=== PATIENT | female | born 1955 | race Caucasian/White ===

== ENCOUNTER → 2019-01-04 11:12 | Outpatient (CLI) | payer MEDICARE, BC, SELFPAY ==
--- NOTE | 2019-01-04 | DI.MG.S_ITS ---
BILATERAL DIGITAL SCREENING MAMMOGRAM 3D/2D WITH CAD: 01/04/2019 CLINICAL: Routine screening. Comparison is made to exams dated: 12/18/2017 mammogram, 12/18/2016 mammogram, 11/26/2015 mammogram, 07/26/2012 mammogram, 11/09/2014 mammogram, and 08/01/2013 mammogram - [facility]. The tissue of both breasts is extremely dense, which lowers the sensitivity of mammography. Current study was also evaluated with a Computer Aided Detection (CAD) system. No significant masses, calcifications, or other findings are seen in either breast. There has been no significant interval change. IMPRESSION: NEGATIVE There is no mammographic evidence of malignancy. A 1 year screening mammogram is recommended. This exam was interpreted at Station ID: [id number]. NOTE: For mammograms, a report in lay terms will be sent to the patient. Approximately 15% of breast malignancies will not be visualized mammographically. In the management of a palpable breast mass, a negative mammogram must not discourage biopsy of a clinically suspicious lesion. Electronically Signed By: Jd bronson/yuly:01/04/2019 18:18:11 letter sent: Normal Exam ACR BI-RADS Category 1: Negative 3341F
== END ==
PROVIDERS: PCP Nurse Practitioner Family; Visit Provider Nurse Practitioner Family
DX: Z12.31 Encounter for screening mammogram for malignant neoplasm of breast (principal)
CPT/HCPCS: 77063; 77067

== ENCOUNTER → 2019-03-08 09:14 | Outpatient (CLI) | payer MEDICARE, BC, SELFPAY ==
--- NOTE | 2019-03-08 | DI.US.S_ITS ---
PROCEDURE: US ABDOMEN LIMITED INDICATIONS: LEFT LOWER HERNIA TECHNIQUE: Real-time focused scanning was performed of the inguinal region, with image documentation. COMPARISON: None. FINDINGS: Normal examination without evidence of hernia or adenopathy. IMPRESSION: Source of left lower quadrant concern is not identified. No hernia or adenopathy is found. Depending on the clinical status followup by CT scanning may become necessary. Dictated by: Jaiden Blackmon M.D. on 03/08/2019 at 10:41 Approved by: Jaiden Blackmon M.D. on 03/08/2019 at 10:41
== END ==
PROVIDERS: PCP Nurse Practitioner Family; Visit Provider Nurse Practitioner Family
DX: R10.32 Left lower quadrant pain (principal)
CPT/HCPCS: 76705

== ENCOUNTER → 2019-04-07 14:12 | Outpatient (CLI) | payer MEDICARE, BC, SELFPAY | PROVIDERS: PCP Nurse Practitioner Family; Visit Provider Nurse Practitioner Family | DX: M81.0 Age-related osteoporosis without current pathological fracture (principal); Z78.0 Asymptomatic menopausal state; Z90.722 Acquired absence of ovaries, bilateral | CPT/HCPCS: 77080 ==

== ENCOUNTER → 2019-05-05 16:18 | Outpatient (CLI) | payer MEDICARE, BC, SELFPAY ==
--- NOTE | 2019-05-05 | DI.RAD.S_ITS ---
PROCEDURE: XR ANKLE RT MIN 3V INDICATIONS: ROLLED RIGHT ANKLE YESTERDAY AND OSTEOPOROSIS TECHNIQUE: 3 views of the ankle were acquired. COMPARISON: None. FINDINGS: Bones: No fractures or dislocations. Ankle mortise is normally aligned. No suspicious bony lesions. Partially imaged surgical hardware involving the head of the first metatarsal. Soft tissues: No tibiotalar joint effusion. Achilles tendon appears normal. IMPRESSION: Right ankle without acute radiographic abnormalities. If there is persistent clinical concern for occult fracture given adequate mechanism of injury, consider repeat imaging in 10-14 days. Dictated by: Julien Francois M.D. on 05/05/2019 at 16:44 Approved by: Julien Francois M.D. on 05/05/2019 at 16:45
== END ==
PROVIDERS: PCP Nurse Practitioner Family; Visit Provider Nurse Practitioner Family
DX: M25.571 Pain in right ankle and joints of right foot (principal); M81.0 Age-related osteoporosis without current pathological fracture
CPT/HCPCS: 73610

== ENCOUNTER → 2020-01-18 15:37 | Outpatient (CLI) | payer MEDICARE, BC, SELFPAY ==
--- NOTE | 2020-01-18 | DI.MRI.S_ITS ---
PROCEDURE: MR LUMBAR SPINE WO CON INDICATIONS: RADICULOPATHY TECHNIQUE: Noncontrast sagittal T1 spin echo and T2 fast echo, sagittal STIR, axial T1 and T2 fast spin echo through the lumbar spine. In cases with scoliosis, additional coronal T2 fast spin echo may be performed. COMPARISON: [facility] [place], CR, XR THORACIC SPINE 2 VIEWS, 09/08/2017, 10:46. [facility], MR, L-SPINE WITHOUT CONTRAST, 09/05/2014, 12:14. FINDINGS: Image quality: The extensive metal artifact as was seen on prior MRI 09/05/14 letters the examination non-diagnostic.. Alignment and Curvature: There is a dextroscoliotic thoracic bony alignment with levoscoliotic lumbosacral alignment documented by prior plain film imaging. Bone Marrow: Marrow is of normal overall signal on very small portions of the lumbosacral spine that can be seen without overlie of extensive metal artifact. This is predominantly at the inferior margin of the sacrum. Spinal Cord: Conus medullaris cannot be seen due to metal artifact. Low thoracic cord cannot be seen. Paraspinous Soft Tissues: No paravertebral masses in the small portion of the paravertebral soft tissues that can be seen without overlie of extensive metal artifact. IMPRESSION: This study is essentially nondiagnostic for violation of the low thoracic spine and lumbosacral spine. Extensive metal artifact is present again, due to metallic spine fusion procedure with Varghese rods over the lumbosacral spine and much of the thoracic spine. Dictated by: Jaiden Blackmon M.D. on 01/18/2020 at 16:58 Approved by: Jaiden Blackmon M.D. on 01/18/2020 at 17:02
== END ==
PROVIDERS: PCP Internal Medicine; Referring Provider Internal Medicine; Visit Provider Internal Medicine
DX: M54.16 Radiculopathy, lumbar region (principal); Z98.1 Arthrodesis status
CPT/HCPCS: 72148

== ENCOUNTER 2020-02-20 19:56 | Emergency (ER) | payer MEDICARE, BC, SELFPAY ==
[2020-02-20 20:02] VITALS: BP 173/89; PULSE 81; RESP 20; TEMP 37.2; O2SAT 99
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
[2020-02-20 21:36] VITALS: PULSE 74
[2020-02-20 22:20] VITALS: BP 137/76; PULSE 76; RESP 16; TEMP 36.6; O2SAT 96
== END 2020-02-20 22:37 | disposition home or self-care (01) ==
PROVIDERS: Emergency Provider Emergency Medicine; PCP Internal Medicine
DX: S52.502A Unspecified fracture of the lower end of left radius, initial encounter for closed fracture (principal); V19.9XXA Pedal cyclist (driver) (passenger) injured in unspecified traffic accident, initial encounter
CPT/HCPCS: 73110; 99282; 99283

== ENCOUNTER → 2020-02-21 13:43 | Outpatient (CLI) | payer MEDICARE, BC, SELFPAY ==
--- NOTE | 2020-02-21 | DI.CT.S_ITS ---
PROCEDURE: CT UE LT WO CON INDICATIONS: Fracture of unspecified carpal bone, left wrist TECHNIQUE: Noncontrast 1 mm axial sections acquired through the carpal bones, with coronal and sagittal reformats. COMPARISON: None. FINDINGS: Image quality: Excellent. Bones: Intra-articular fracture of the distal radial metaphysis, with a 3 mm of articular surface diastasis and 1 mm of cortical step-off. Mildly impacted appearance. Cystic focus present within the lunate incidentally noted. IMPRESSION: Mildly impacted, intra-articular fracture of the distal radial metaphysis with mild articular surface incongruity as above Dictated by: Palomo Yoo M.D. on 02/21/2020 at 15:39 Approved by: Palomo Yoo M.D. on 02/21/2020 at 15:43
== END ==
PROVIDERS: PCP Internal Medicine; Referring Provider Internal Medicine; Visit Provider Orthopaedic Surgery
DX: S52.572A Other intraarticular fracture of lower end of left radius, initial encounter for closed fracture (principal); X58.XXXA Exposure to other specified factors, initial encounter
CPT/HCPCS: 73200

== ENCOUNTER → 2020-02-26 15:29 | Outpatient (CLI) | payer MEDICARE, BC, SELFPAY ==
[2020-02-26 17:41] LABS: Add Manual Diff / Slide Review NO; Basophils Absolute Auto 100 /uL (0-100); Basophils Percent Auto 1.1 % (0-2); Eosinophils Absolute Auto 100 /uL (0-450); Eosinophils Percent Auto 2.8 % (2-4); Hematocrit 39.4 % (36-46); Hemoglobin 13.6 g/dL (12.0-16.0); Lymphocytes Absolute Auto 1200 /uL (1100-4500); Lymphocytes Percent Auto 23.1 % (25-40); Mean Corpuscular HGB Conc 34.6 % (30-36); Mean Corpuscular Hemoglobin 31.6 PG (26-34); Mean Corpuscular Volume 91.4 fL (80-100); Monocytes Absolute Auto 500 /uL (0-900); Monocytes Percent Auto 9.2 % (3-14); Neutrophils Absolute Auto 3300 /uL (1500-7000); Neutrophils Percent Auto 63.8 % (50-75); Platelet Count 229 X10^3/uL (150-400); Red Blood Cell Count 4.31 X10^6/uL (4.0-5.2); Red Cell Distribution Width 13.3 % (11.6-14.8); White Blood Cell Count 5.2 X10^3/uL (4.5-11.0)
[2020-02-26 18:29] LABS: BUN Creatinine Ratio 18.5 (6-22); Blood Urea Nitrogen 10 mg/dL (7-17); Carbon Dioxide 32 mmol/L (22-32); Chloride 97 mmol/L (98-107); Estimated Glomerular Filt Rate > 60.0 mL/min (>60); Glucose 78 mg/dL (80-110); HEMOLYSIS < 15 (0-50); Potassium 4.2 mmol/L (3.4-5.1); Sodium 136 mmol/L (137-145)
== END ==
PROVIDERS: PCP Internal Medicine; Referring Provider Orthopaedic Surgery; Visit Provider Orthopaedic Surgery
DX: Z01.818 Encounter for other preprocedural examination (principal); Z01.812 Encounter for preprocedural laboratory examination
CPT/HCPCS: 36415; 80048; 85025; 93005

== ENCOUNTER → 2020-02-27 14:03 | Outpatient (CLI) | payer MEDICARE, BC, SELFPAY ==
[2020-02-28 19:47] LABS: COVID19 Sendout Not Detected (Not Detect)
== END ==
PROVIDERS: PCP Internal Medicine; Visit Provider Physician Assistant
DX: Z01.812 Encounter for preprocedural laboratory examination (principal)
CPT/HCPCS: 87635

== ENCOUNTER 2020-03-01 06:12 | Day surgery (SDC) | payer MEDICARE, BC, SELFPAY ==
[2020-02-27 14:45] VITALS: BMI 21.5
[2020-03-01] VITALS (7 sets, daily range): BP systolic 114–138; BP diastolic 48–97; PULSE 57–95; RESP 13–19; TEMP 36.1–36.6; O2SAT 94–96; BMI 21.5
[2020-03-01] MEDS: LACTATED RINGERS 1,000 ML 42 ML IV (07:05)
--- NOTE | 2020-03-01 07:43 | PM.PREOP ---
Pre-operative Note COVID-19 COVID-19 status: Negative Interval Note History & Physical reviewed/Exam performed by Physician: Yes Changes to H&P: No
--- NOTE | 2020-03-01 07:43 | PM.OP.1 ---
Operative Date/Time/Diagnoses Date of procedure: 03/01/20 Time of procedure: 07:54 Pre-op diagnosis: Comminuted left distal radius fracture Post-op diagnosis: same Procedure & Clinicians Procedure: ORIF left distal radius fracture Same procedure as scheduled: Yes Indications: This is a 64-year-old female fell on her outstretched left hand and had a comminuted left distal radius fracture she about the operating room for open reduction internal fixation with volar plate. Surgeon: Xenia Morel Click Yes if Unassisted: Yes Anesthesia Type: General Operative Notes Findings: Comminuted left distal radius fracture, good reduction, adequate bone Closure Type: primary Specimen(s): none sent Prosthetic devices, grafts, tissues, transplants, or devices: Biomet DVR volar plate Estimated Blood Loss (mL): 100 Blood products transfused: none Tourniquet time (min): 85 Procedure in detail: Patient is brought to the operating room the underwent induction of a general anesthesia. A time-out was performed. Antibiotics were given. Left upper extremity prepped draped standard sterile fashion. High arm tourniquet was applied to 250 mm of mercury. A volar incision was made with a slight curve distally to the wrist crease. Dissection was carried out through skin and subcutaneous tissues. An incision was made over the FCR sheath. The flexor carpi radialis was meticulously mobilized and the inferior aspect of the sheath was incised. Pronator muscle was stripped off of the distal radius. Fracture then was meticulously an anatomically aligned. DVR narrow left distal radius plate was selected. It was carefully aligned to the distal radius and it was some stabilized with a screw into the sliding slot. A pin was placed distally in the distal fragment x-ray was then brought in and it was felt that the plate should be shifted slightly distally. Five additional traction was applied to the fracture and the plate was slid about 1 mm to 2 mm distally. It was rechecked with the fluoroscopy and noted to be in a good position. The fracture was well aligned and the plate appeared to be well aligned. On the distal fixation was provided with multiple screws and a peg. The proximal screws were then filled using standard technique. Intraoperative x-rays confirmed anatomic reduction and good position of all of the screws. I range of motion of the wrist was carefully used to check that there was no crepitation or irritation with range of motion of the wrist. Marcaine was then injected the muscle was loosely approximated over the plate. The fascia was closed with interrupted with Vicryl. Skin was closed with interrupted nylon. Wound was dressed sterilely. The patient was placed in a short-arm splint. Patient tolerated the procedure well. She was transferred recovery room in satisfactory condition. Marcaine was injected. Complications: none Post-operative Condition: stable Disposition: same day surgery Plan for aftercare: Return to clinic in 10 days for x-rays out of plaster removal of sutures and placement of her removable splint.
[2020-03-01] MEDS: CEFAZOLIN 2 GM/100 ML FROZ.PIGGY IV (07:45)
--- NOTE | 2020-03-01 08:13 | SUR.OPER ---
Supine on padded OR bed, head on pillow,RIGHT arm secured on padded arm board at <90 degrees abduction, legs uncrossed, safety belt at thigh, tape over blanket over lower legs.LEFT ARM TO HAND TABLE.
[2020-03-01] MEDS: BUPIVACAINE 0.5% (PF) VIAL 30 ML INJ (08:22)
[2020-03-01] MEDS: OXYCODONE IR 5 MG TABLET PO (09:46)
== END 2020-03-01 10:24 | disposition home or self-care (01) ==
PROVIDERS: PCP Internal Medicine; Referring Provider Orthopaedic Surgery; Visit Provider Orthopaedic Surgery
PROC: (CPT 25609; principal; 2020-03-01 07:45)
DX: S52.572A Other intraarticular fracture of lower end of left radius, initial encounter for closed fracture (principal); Y93.55 Activity, bike riding; V19.9XXA Pedal cyclist (driver) (passenger) injured in unspecified traffic accident, initial encounter; I10 Essential (primary) hypertension; M81.0 Age-related osteoporosis without current pathological fracture; K21.9 Gastro-esophageal reflux disease without esophagitis; M41.9 Scoliosis, unspecified
CPT/HCPCS: 25609; J0690; J1100; J2405; J2704; J3010

== ENCOUNTER → 2020-03-07 14:10 | Outpatient (CLI) | payer MEDICARE, BC, SELFPAY | PROVIDERS: PCP Internal Medicine; Referring Provider Internal Medicine; Visit Provider Internal Medicine | DX: M79.671 Pain in right foot (principal) | CPT/HCPCS: 95886; 95910 ==

== ENCOUNTER → 2020-03-25 08:27 | Outpatient (CLI) | payer MEDICARE, BC, SELFPAY ==
[2020-03-25 09:08] VITALS: BP 139/80; PULSE 83; RESP 16; TEMP 36.9; O2SAT 97; BMI 21.0
[2020-03-25 09:46] LABS: Hematocrit 39.9 % (36-46); Hemoglobin 13.4 g/dL (12.0-16.0); Mean Corpuscular HGB Conc 33.7 % (30-36); Mean Corpuscular Volume 92.1 fL (80-100); Platelet Count 218 X10^3/uL (150-400); Red Blood Cell Count 4.33 X10^6/uL (4.0-5.2); Red Cell Distribution Width 13.4 % (11.6-14.8)
[2020-03-25 09:54] LABS: Prothrombin Time 11.4 SECONDS (10.1-12.7)
--- NOTE | 2020-03-25 10:20 | SUR.PREOP ---
1020 pt left, test cancelled, Dr Blackmon spoke at length with pt and she left unit with CD and in stable condition.
== END ==
PROVIDERS: PCP Internal Medicine; Referring Provider Internal Medicine; Visit Provider Internal Medicine
DX: Z79.899 Other long term (current) drug therapy (principal); Z53.9 Procedure and treatment not carried out, unspecified reason
CPT/HCPCS: 36415; 85027; 85610

== ENCOUNTER → 2020-03-29 14:58 | Outpatient (CLI) | payer MEDICARE, BC, SELFPAY ==
--- NOTE | 2020-03-29 15:00 | DI.MG.S_ITS ---
BILATERAL DIGITAL SCREENING MAMMOGRAM 3D/2D WITH CAD: 03/29/2020 CLINICAL: Routine screening. Comparison is made to exams dated: 01/04/2019 mammogram, 12/18/2017 mammogram, and 12/18/2016 mammogram - [facility]. There are scattered fibroglandular elements in both breasts. Current study was also evaluated with a Computer Aided Detection (CAD) system. No significant masses, calcifications, or other findings are seen in either breast. There has been no significant interval change. IMPRESSION: NEGATIVE There is no mammographic evidence of malignancy. A 1 year screening mammogram is recommended. This exam was interpreted at Station ID: [id number]. NOTE: For mammograms, a report in lay terms will be sent to the patient. Approximately 15% of breast malignancies will not be visualized mammographically. In the management of a palpable breast mass, a negative mammogram must not discourage biopsy of a clinically suspicious lesion. Electronically Signed By: Sampson kiran/yuly:03/29/2020 16:31:28 letter sent: Normal Exam ACR BI-RADS Category 1: Negative 3341F
== END ==
PROVIDERS: PCP Internal Medicine; Referring Provider Internal Medicine; Visit Provider Internal Medicine
DX: Z12.31 Encounter for screening mammogram for malignant neoplasm of breast (principal)
CPT/HCPCS: 77063; 77067

== ENCOUNTER → 2021-05-02 10:19 | Outpatient (CLI) | payer MEDICARE, BC, SELFPAY ==
--- NOTE | 2021-05-02 | DI.MG.S_ITS ---
BILATERAL DIGITAL SCREENING MAMMOGRAM 3D/2D WITH CAD: 05/02/2021 CLINICAL: Routine screening. Comparison is made to exams dated: 03/29/2020 mammogram, 01/04/2019 mammogram, and 12/18/2017 mammogram - [facility]. The tissue of both breasts is heterogeneously dense. This may lower the sensitivity of mammography. Current study was also evaluated with a Computer Aided Detection (CAD) system. No significant masses, calcifications, or other findings are seen in either breast. There has been no significant interval change. IMPRESSION: NEGATIVE There is no mammographic evidence of malignancy. A 1 year screening mammogram is recommended. This exam was interpreted at Station ID: [id number]. NOTE: For mammograms, a report in lay terms will be sent to the patient. Approximately 15% of breast malignancies will not be visualized mammographically. In the management of a palpable breast mass, a negative mammogram must not discourage biopsy of a clinically suspicious lesion. Electronically Signed By: Addie tejada/yuly:05/02/2021 14:06:17 letter sent: Normal Exam ACR BI-RADS Category 1: Negative 3341F
== END ==
PROVIDERS: PCP Internal Medicine; Referring Provider Internal Medicine; Visit Provider Internal Medicine
DX: Z12.31 Encounter for screening mammogram for malignant neoplasm of breast (principal)
CPT/HCPCS: 77063; 77067

== ENCOUNTER → 2021-06-06 12:38 | Outpatient (CLI) | payer MEDICARE, BC, SELFPAY ==
--- NOTE | 2021-06-06 | DI.RAD.S_ITS ---
PROCEDURE: XR DEXA AXIAL SKELETON INDICATIONS: Asymptomatic menopausal state COMPARISON: [facility], CR, XR DEXA AXIAL SKELETON, 04/07/2019, 14:52. FINDINGS: This blank DEXA report has been sent in error by the PACS system. The correct and complete report will be forthcoming in 1-2 days. Thank you for your patience and understanding. Dictated by: Meghan Wynne MD, PhD on 06/07/2021 at 8:08 Approved by: Meghan Wynne MD, PhD on 06/07/2021 at 8:09
== END ==
PROVIDERS: PCP Internal Medicine; Referring Provider Internal Medicine; Visit Provider Internal Medicine
DX: M81.0 Age-related osteoporosis without current pathological fracture (principal); Z78.0 Asymptomatic menopausal state; Z90.722 Acquired absence of ovaries, bilateral
CPT/HCPCS: 77080

== ENCOUNTER → 2021-10-05 13:51 | Outpatient (CLI) | payer MEDICARE, BC, SELFPAY ==
--- NOTE | 2021-10-05 13:53 | DI.RAD.S_ITS ---
PROCEDURE: XR HAND RT MIN 3V INDICATIONS: R thenar pain, swelling TECHNIQUE: 3 views of the hand(s) acquired. COMPARISON: [facility] [place], CR, XR WRIST 3+ VIEWS BILATERAL, 06/05/2020, 11:13. FINDINGS: Bones: There is a 6 mm acute fracture seen involving the proximal aspect of the proximal phalanx of the thumb, with moderate displacement of the fracture fragment. There is intra-articular involvement. No additional fractures are detected. Age-appropriate bony degenerative changes are seen. Soft tissues: No suspicious soft tissue calcifications. IMPRESSION: Moderately displaced 6 mm acute avulsion fracture fragment seen at proximal aspect of the proximal phalanx of the thumb. Dictated by: Miky Allen M.D. on 10/05/2021 at 13:01 Approved by: Miky Allen M.D. on 10/05/2021 at 13:03
== END ==
PROVIDERS: PCP Internal Medicine; Referring Provider Physician Assistant; Visit Provider Physician Assistant
DX: S62.511A Displaced fracture of proximal phalanx of right thumb, initial encounter for closed fracture (principal); X58.XXXA Exposure to other specified factors, initial encounter
CPT/HCPCS: 73130

== ENCOUNTER 2021-10-11 00:25 | Emergency (ER) | payer MEDICARE, BC, SELFPAY ==
[2021-10-11 00:37] VITALS: BP 145/113; PULSE 100; RESP 18; TEMP 36.6; O2SAT 99; BMI 21.9
--- NOTE | 2021-10-11 00:38 | DI.RAD.S_ITS ---
PROCEDURE: XR FOOT RT MIN 3V INDICATIONS: Trauma right great toe/metatarsal TECHNIQUE: 3 views of the foot were acquired. COMPARISON: [facility] [place], CR, XR FOOT 3 VIEWS WEIGHT BEARING LEFT, 06/15/2019, 14:36. FINDINGS: Bones: A linear lucency traversing the head of the 1st metatarsal is consistent with a fracture. Postoperative changes are seen without perihardware lucency. Hallux valgus angulation of the great toe measures 32?. Soft tissues: No tibiotalar joint effusion. Achilles tendon appears normal. IMPRESSION: 1. Linear lucency of the head of the 1st metatarsal consistent with a fracture. Please correlate with point tenderness. 2. Postoperative changes and hallux valgus angulation of the great toe. Dictated by: Emerson Barber M.D. on 10/11/2021 at 0:53 Approved by: Emerson Barber M.D. on 10/11/2021 at 0:58
--- NOTE | 2021-10-11 00:38 | ED_ITS ---
HPI - General Adult General Chief complaint: Extremity Injury, Upper Stated complaint: cut finger/left hand Time Seen by Provider: 10/11/21 00:32 Source: patient Mode of arrival: Ambulatory Limitations: no limitations History of Present Illness HPI narrative: 66-year-old female who is here for evaluation of a cut to her left index finger. It occurred while she was making dinner this evening. She covered with a bandage. She continued making dinner and also had dinner but it was when she was getting ready for bed this evening that she decided to take the bandage off and noticed that it was still bleeding. She also had another injury today. She dropped a heavy can on the top of her right foot. Since that time has had increasing redness and bruising and discomfort. Related Data Home Medications Medication Instructions Recorded Confirmed amitriptyline 25 mg tablet 25 mg PO BEDTIME 03/01/20 10/05/21 atorvastatin 10 mg tablet 10 mg PO BEDTIME 03/01/20 10/05/21 gabapentin 300 mg capsule 300 mg PO BEDTIME 03/01/20 10/05/21 hydrochlorothiazide 12.5 mg capsule 12.5 mg PO DAILY 03/01/20 10/05/21 Allergies Allergy/AdvReac Type Severity Reaction Status Date / Time crab [CRAB] Allergy Mild LIP Verified 10/05/21 13:32 SWELLING MESQUITE Allergy Severe SEVERE Uncoded 10/05/21 13:32 FACIAL SWELLING, HIVES Review of Systems Musculoskeletal Musculoskeletal: Reports system reviewed and no additional complaints, except as documented and Reports as per HPI Integumentary/Breasts Skin/Breast: Reports system reviewed and no additional complaints, except as documented and Reports as per HPI Neurologic Neurologic: Reports system reviewed and no additional complaints, except as documented Hematologic/Lymphatic On Anticoagulants: No Patient History Medical History Atypical chest pain GERD (gastroesophageal reflux disease) Glaucoma, right eye HTN (hypertension) Osteoporosis Scoliosis Thoracic back pain Wrist fracture, left (02/20/20) Surgical History History of arthroplasty of left knee (08/2015) History of arthroplasty of right knee (03/17/17) History of bunionectomy of both great toes History of Marshal fundoplication Hx of arthroscopy of left knee Hx of bilateral oophorectomy Hx of cholecystectomy Hx of eye surgery Hx of sinus surgery Hx of spinal fusion Hx of tonsillectomy S/P total knee replacement Social History household members: spouse lives independently: Yes Smoking Status: Never smoker alcohol intake: current Smoking Status: Never smoker alcohol intake frequency: a few times a week Substance Use Type: does not use Exam Initial Vital Signs Initial Vital Signs: Vital Signs Temperature 97.9 F 10/11/21 00:37 Pulse Rate 100 H 10/11/21 00:37 Respiratory Rate 18 10/11/21 00:37 Blood Pressure 145/113 H 10/11/21 00:37 Pulse Oximetry 99 10/11/21 00:37 Const General: cooperative and healthy appearing HENMT Head: normal to inspection and normocephalic Skin Other: Patient has a 1/2 cm cut to the ulnar aspect of the right index finger at the level of the nail. Does not involve the nail. There is no active bleeding. Patient also has bruising to the MTP joint of the right great toe. Extrem Other: Tenderness to palpation over the MTP joint of the right great toe. Procedures Laceration Repair Laceration 1: Site: hand Side (If applicable): left Size (cm): 0.5 Description: linear Depth: simple, single layer Skin layer closed with: dermabond Course Orders Ordered: ED Orders 10/11/21 00:38 XR foot RT min 3V Stat Vital Signs Vital signs: Vital Signs - 8 hr 10/11/21 00:37 10/11/21 01:25 Temperature 97.9 F Pulse Rate 100 H 71 Respiratory Rate 18 16 Blood Pressure 145/113 H 117/65 Pulse Oximetry 99 97 Medical Decision Making Imaging Data Extremity x-ray #1: Radiologist's Impression: [address] [address] XRay Report Signed Patient: Jen Erickson MR#: [id number] : 1955 Acct:[id number] Age/Sex: 66 / F Date of Service: 10/11/21 Loc: ED Accession Number: [id number] ?? Procedure: XR foot RT min 3V Ordering Provider: Fili Chu D.O. PROCEDURE:? XR FOOT RT MIN 3V ? INDICATIONS:? Trauma right great toe/metatarsal ? TECHNIQUE:? 3 views of the foot were acquired.? ? COMPARISON:? [facility], [place], XR FOOT 3 VIEWS WEIGHT BEARING LEFT, 06/15/2019, 14:36. ? FINDINGS:? ? Bones:? A linear lucency traversing the head of the 1st metatarsal is consistent with a fracture.? Postoperative changes are seen without perihardware lucency.? Hallux valgus angulation of the great toe measures 32?. ? Soft tissues:? No tibiotalar joint effusion.? Achilles tendon appears normal.? ? ? IMPRESSION:? 1. Linear lucency of the head of the 1st metatarsal consistent with a fracture.? Please correlate with point tenderness. 2. Postoperative changes and hallux valgus angulation of the great toe.? ? Dictated by: Emerson Barber M.D. on 10/11/2021 at 0:53 ? ? Approved by: Emerson Barber M.D. on 10/11/2021 at 0:58? MDM Narrative Medical decision making narrative: The cut to the left index finger is superficial and was closed with Dermabond without incident. X-rays of the right foot do show concern for a fracture as described above. She was placed in an orthopedic shoe. She was given care instructions return precautions for both of these injuries. She expressed understanding and agreement. Discharge Plan Departure Patient Disposition: Home Clinical Impression: Finger laceration, Fracture of toe of right foot Instructions: DI for Toe Fracture, DI for Laceration Repair-Skin Glue Activity Restrictions/Additional Instructions: The laceration should heal well with the skin glue. You can wash your hands like normal. The skin glue should come off within the next week. The x-ray does show that you have fractured the big toe on your right foot. Use the orthopedic shoe would like we discussed. You can contact the appellate court clerk at the number provided below for follow-up. Return to the emergency department for any new or worsening symptoms. Prescriptions: No Action atorvastatin 10 mg Tablet 10 mg PO BEDTIME 0RF amitriptyline 25 mg Tablet 25 mg PO BEDTIME 0RF hydrochlorothiazide 12.5 mg Capsule 12.5 mg PO DAILY 0RF gabapentin 300 mg Capsule 300 mg PO BEDTIME 0RF Referrals: Keisha Hobson DPM [Physician] - Natalie Beck ARNP [Primary Care Provider] -
[2021-10-11 01:25] VITALS: BP 117/65; PULSE 71; RESP 16; O2SAT 97
== END 2021-10-11 01:26 | disposition home or self-care (01) ==
PROVIDERS: Emergency Provider Emergency Medicine; PCP Internal Medicine
DX: S92.311A Displaced fracture of first metatarsal bone, right foot, initial encounter for closed fracture (principal); S61.210A Laceration without foreign body of right index finger without damage to nail, initial encounter; W45.8XXA Other foreign body or object entering through skin, initial encounter; W20.8XXA Other cause of strike by thrown, projected or falling object, initial encounter
CPT/HCPCS: 73630; 99283

== ENCOUNTER → 2021-10-13 09:17 | Outpatient (CLI) | payer MEDICARE, BC, SELFPAY ==
--- NOTE | 2021-10-13 | DI.MRI.S_ITS ---
PROCEDURE: MR HAND RT WO CON INDICATIONS: RIGHT SKIER'S THUMB TECHNIQUE: Noncontrast oblique coronal T1 spin echo and T2 fast spin echo with fat saturation, axial and sagittal T2 fast spin echo with fat saturation, through the thumb. COMPARISON: None. FINDINGS: Image quality: Some images are mildly degraded by motion artifact. Bones: A defect is identified in the ulnar aspect of the 1st proximal phalanx base, compatible with avulsion injury. First carpometacarpal joint: On sagittal images, the dorsal radial ligament and posterior oblique ligament appear intact. The intermetacarpal ligament between the 1st and 2nd metacarpal bases also appears intact. On the volar aspect, the deep and superficial layers of the anterior oblique ligament appear intact. First metacarpophalangeal joint: The radial collateral ligament appears intact, along with overlying fibers of the abductor pollicis brevis tendon. Tear and retraction of the ulnar collateral ligament. The overlying fibers of the adductor pollicis muscle appear intact. Linear T2 hyperintense signal underlies the extensor pollicis brevis tendon, concerning for partial tear. Reticulated and confluent T2 hyperintense signal is seen about the 1st MCP, compatible with edema. The aponeurosis of the adductor pollicis muscle also appears normal. The volar plate appears intact on sagittal images, situated between the radial and ulnar sesamoids. Miscellaneous: No ganglion cysts. IMPRESSION: 1. Tear and retraction of the ulnar collateral ligament. 2. Partial tear of the extensor pollicis brevis tendon. Dictated by: Gutierrez Mcguire M.D. on 10/13/2021 at 12:59 Approved by: Gutierrez Mcguire M.D. on 10/13/2021 at 13:42
== END ==
PROVIDERS: PCP Internal Medicine; Referring Provider Physician Assistant Medical; Visit Provider Physician Assistant Medical
DX: S63.641A Sprain of metacarpophalangeal joint of right thumb, initial encounter (principal); S66.211A Strain of extensor muscle, fascia and tendon of right thumb at wrist and hand level, initial encounter; S53.31XA Traumatic rupture of right ulnar collateral ligament, initial encounter; X58.XXXA Exposure to other specified factors, initial encounter
CPT/HCPCS: 73218

== ENCOUNTER → 2022-05-15 16:10 | Outpatient (CLI) | payer MEDICARE, BC, SELFPAY ==
--- NOTE | 2022-05-15 16:11 | DI.MG.S_ITS ---
BILATERAL DIGITAL SCREENING MAMMOGRAM 3D/2D WITH CAD: 05/15/2022 CLINICAL: Routine screening. Comparison is made to exams dated: 05/02/2021 mammogram, 03/29/2020 mammogram, and 01/04/2019 mammogram - [facility]. Both breasts are heterogeneously dense, which may obscure small masses (category c / 51-75% glandular tissue). Current study was also evaluated with a Computer Aided Detection (CAD) system. No significant masses, calcifications, or other findings are seen in either breast. There has been no significant interval change. IMPRESSION: NEGATIVE There is no mammographic evidence of malignancy. A 1 year screening mammogram is recommended. Based on the Tyrer Cuzick model (a risk assessment model) the patient's lifetime risk is 6.5% and her 10 year risk is 3.8%. According to the ACR, ACS, and NCCN guidelines, an annual breast MRI exam along with mammogram is recommended if the patient's lifetime risk is 20% or greater. This exam was interpreted at Station ID: [id number]. NOTE: For mammograms, a report in lay terms will be sent to the patient. Approximately 15% of breast malignancies will not be visualized mammographically. In the management of a palpable breast mass, a negative mammogram must not discourage biopsy of a clinically suspicious lesion. Electronically Signed By: Emanuel mamrolejo/yuly:05/15/2022 16:43:44 letter sent: Normal Exam ACR BI-RADS Category 1: Negative 3341F
== END ==
PROVIDERS: PCP Internal Medicine; Referring Provider Internal Medicine; Visit Provider Internal Medicine
DX: Z12.31 Encounter for screening mammogram for malignant neoplasm of breast (principal)
CPT/HCPCS: 77063; 77067

== ENCOUNTER → 2022-07-01 14:48 | Outpatient (CLI) | payer MEDICARE, BC, SELFPAY | PROVIDERS: PCP Internal Medicine; Referring Provider Internal Medicine; Visit Provider Internal Medicine | DX: M81.0 Age-related osteoporosis without current pathological fracture (principal); Z78.0 Asymptomatic menopausal state; Z79.83 Long term (current) use of bisphosphonates | CPT/HCPCS: 77080; 77081 ==

== ENCOUNTER 2023-04-14 14:40 | Outpatient (RCR) | payer MEDICARE, BC, SELFPAY ==
--- NOTE | 2023-04-14 15:34 | OT.OP.DC ---
Visit Care Team Role Provider Type CELIA Jarrell Attending Provider Advanced Dispatch Manager Family Provider Primary Care Provider Referring Provider Address: [address] [place] [address], [facility] [place], [address] Email: [email or web address] Outpatient OT Outpatient Adult Evaluation Start: 04/14/23 15:24 Freq: Status: Active Protocol: Document 04/14/23 15:24 AMS (Rec: 04/14/23 15:34 AMS [id number]) General Information - Adult Session Time Visit Start Time 15:00 Visit Stop Time 15:20 Total Visit Minutes 20 Setting Treatment Setting Outpatient Care Visit Type Note Type Initial Evaluation Assessment/Plan Assessment Treatment Assessment Jen is a 67 y.o. R hand dominant female referred to outpatient OT secondary to B OA. Medical History is significant for arthritis, joint replacement, neuropathy, osteopenia, vision problems, sciatica, and surgeries: spine fusion (d/t scoliosis); B total knee replacements; L distal radial fracture; R skier's thumb. Jen denied current use of finger/hand splints. Flexion contracture noted of R PIPJ and slight ulnar drift at L 3rd DIPJ; report of discomfort at R 5th PIPJ, L 5th PIPJ, and L 3rd DIPJ. Concern re: deformities of joints. Verbally discussed basic joint protection principles. Rec referral to UE orthopedic hand specialist versus certified hand therapist to discuss options ( including custom-made splints) . Plan Patient Recommendations Discharge from Occupational Therapy Suggested Referrals Other Other Suggested Referrals UE ortho specialist/Certified Hand Therapist Functional Wrist/Hand Scan Hand Side Sensory Assessment Sensory Profile2
== END 2023-04-16 10:33 | disposition home or self-care (01) ==
LOC: OT 14:40
PROVIDERS: Family Provider Internal Medicine; PCP Internal Medicine; Referring Provider Internal Medicine; Visit Provider Internal Medicine
DX: M19.041 Primary osteoarthritis, right hand (principal); M19.042 Primary osteoarthritis, left hand; M25.50 Pain in unspecified joint
CPT/HCPCS: 97165

== ENCOUNTER → 2023-06-07 14:22 | Outpatient (CLI) | payer MEDICARE, BC, SELFPAY ==
--- NOTE | 2023-06-07 14:23 | DI.RAD.S_ITS ---
PROCEDURE: XR LUMBAR SPINE MIN 4V INDICATIONS: BACK PAIN TECHNIQUE: 5 views of the lumbar spine were acquired, including bilateral oblique views. COMPARISON: [facility], CR, XR LUMBAR SPINE WITH OLBIQUES PLUS FLEXION EXTENSION, 11/25/2020, 11:09. FINDINGS: Bones: Lumbosacral spine fixation. Varghese rods extending to the thoracic spine. No hardware fracture is seen. Bones appear osteopenic. Scoliosis. Soft tissues: Prominent gas in the stomach. Prominent fecal residue. Clips in the left abdomen. Suspect calcified fibroid. IMPRESSION: No interval change appreciated. Lumbosacral spine and Varghese azar fixation is intact. Dictated by: Guillaume Hermosillo M.D. on 06/07/2023 at 15:15 Approved by: Guillaume Hermosillo M.D. on 06/07/2023 at 15:20
== END ==
PROVIDERS: Family Provider Internal Medicine; PCP Internal Medicine; Referring Provider Physical Medicine & Rehabilitation; Visit Provider Physical Medicine & Rehabilitation
DX: M54.9 Dorsalgia, unspecified (principal); Z98.890 Other specified postprocedural states
CPT/HCPCS: 72110

== ENCOUNTER → 2023-06-08 14:19 | Outpatient (CLI) | payer MEDICARE, BC, SELFPAY ==
--- NOTE | 2023-06-08 | DI.MG.S_ITS ---
BILATERAL DIGITAL SCREENING MAMMOGRAM 3D/2D WITH CAD: 06/08/2023 CLINICAL: Routine screening. Comparison is made to exams dated: 05/15/2022 mammogram, 05/02/2021 mammogram, 03/29/2020 mammogram, and 01/04/2019 mammogram - [facility]. There are scattered areas of fibroglandular density in both breasts (category b / 25%-50% glandular tissue). Current study was also evaluated with a Computer Aided Detection (CAD) system. There are benign post operative findings in both breasts. No significant masses, calcifications, or other findings are seen in either breast. There has been no significant interval change. IMPRESSION: BENIGN There is no mammographic evidence of malignancy. A 1 year screening mammogram is recommended. Based on the Tyrer Cuzick model (a risk assessment model) the patient's lifetime risk is 4.1% and her 10 year risk is 2.6%. According to the ACR, ACS, and NCCN guidelines, an annual breast MRI exam along with mammogram is recommended if the patient's lifetime risk is 20% or greater. This exam was interpreted at Station ID: [id number]. NOTE: For mammograms, a report in lay terms will be sent to the patient. Approximately 15% of breast malignancies will not be visualized mammographically. In the management of a palpable breast mass, a negative mammogram must not discourage biopsy of a clinically suspicious lesion. Electronically Signed By: Guillaume davis/yuly:06/08/2023 15:38:30 letter sent: Normal Exam ACR BI-RADS Category 2: Benign Finding(s) 3342F
== END ==
PROVIDERS: Family Provider Internal Medicine; PCP Internal Medicine; Referring Provider Internal Medicine; Visit Provider Internal Medicine
DX: Z12.31 Encounter for screening mammogram for malignant neoplasm of breast (principal)
CPT/HCPCS: 77063; 77067

== ENCOUNTER 2023-06-22 10:13 | Outpatient (CLI) | payer MEDICARE, BC, SELFPAY ==
[2023-06-22] VITALS (8 sets, daily range): BP systolic 111–139; BP diastolic 56–74; PULSE 62–78; RESP 18–22; TEMP 36.3; O2SAT 96–100
--- NOTE | 2023-06-22 10:15 | DI.RAD.S_ITS ---
PROCEDURE: PAIN L INTERLAMINAR/CAUDAL INJ INDICATIONS: COCCXYGEAL DISORDER COMPARISON: None. FINDINGS: Fluoroscopic spot filming was performed to verify placement of spinal needles at the caudal foramen level(s), as labeled on the films. Appropriate location(s) of the needle tip(s) was confirmed by injection of iodinated contrast. IMPRESSION: Access needle placed for caudal epidural steroid injection. Dictated by: Meghan Wynne MD, PhD on 06/22/2023 at 13:25 Approved by: Meghan Wynne MD, PhD on 06/22/2023 at 13:25
[2023-06-22] MEDS: MIDAZOLAM 2 MG/2 ML VIAL IV (11:41)
[2023-06-22] MEDS: DEXAMETHASONE 10 MG/ML VIAL INJ (11:46)
[2023-06-22] MEDS: iopamidoL 15 ML VIAL 3 ML INJ (11:46)
[2023-06-22] MEDS: BUPIVACAINE 0.25% (PF) VIAL 2 ML INJ (11:47)
[2023-06-22] MEDS: BETAMETHASONE 30 MG/5 ML MDV 6 MG INJ (11:47)
--- NOTE | 2023-06-22 12:02 | PM.PROC.IR.1 ---
Date/Time/Diagnoses Date of procedure: 06/22/23 Time of procedure: 12:02 Pre-procedure diagnosis: 1. MULTILEVEL SPINAL STENOSIS 2. POST FUSION SYNDROME Post-procedure diagnosis: same Procedure Notes Procedure: 1. FLUOROSCOPICALLY GUIDED CONTRAST CONTROLLED CAUDAL EPIDURAL STEROID INJECTION, Indications: Jen is referred by CELIA Beck for treatment of Multilevel Stenosis Physician: Sundeep Damico Total Fluoroscopy time (seconds): 17 Total sedation minutes: 17 Complications: none Procedure in detail & Post-procedure care: FINDINGS Multilevel Stenosis S/p Lami/Fusion Syndrome DESCRIPTION OF PROCEDURE Fluoroscopically guided, contrast controlled caudal epidural steroid injection with Conscious Sedation Following review of allergy and review of potential side effects and complications, including but not necessarily limited to infection, allergic reaction, local tissue breakdown, temporary or permanent nerve injury, stroke, paralysis, and possible , the patient indicated that they understood and agreed to proceed. An informed consent document was signed by the patient, witnessed by a nurse, and placed in the patient's chart. Additionally, other treatment options including medications, modalities, and physical therapy were reviewed with the patient. After review of previous anaesthesic history and IV conscious sedation the patient was deemed safe to proceed with today?s procedure with IV conscious sedation as ASA class II designation. Safety time-out was performed to confirm patient ID, procedure to be performed and site of procedure. IV sedation was accomplished with a combination of 2mg of Versed administered by the RN after DO order, titrated to patient comfort during the course of the procedure while the patient remained responsive to all verbal commands In the prone position, following sterile prep and drape of the lumbar region, the sacral hiatus was identified fluoroscopically. The skin was anesthetized via a 25-gauge, 1.5-inch needle with approximately 2cc of 1% lidocaine solution. At this point, a 25-gauge, 3inch needle was atraumatically introduced and advanced under fluoroscopic guidance to the corresponding sacral hiatus and entering the sacral canal. Following negative aspiration, injection of approximately 0.3cc of Isovue 300 confirmed interarticular placement without vascular uptake. Radiological data, including multiple fluoroscopic views of the lumbosacral spine, reveal a spinal needle in the sacral canal through the sacral hiatus. Subsequent views show flow of contrast material superiorly and inferiorly in the sacral canal without vascular or intrathecal uptake. At this point, a total of 5cc including 2cc or 12mg of betamethasone and 3cc of 1% lidocaine solution was injected without complication. The patient tolerated the procedure well without signs or symptoms of complications prior to transfer to the recovery area continued monitoring without incident. The patient was then transferred to the recovery area where they were observed for an appropriate period of time after the injection. The patient reported a VAS score of 7 prior to the procedure and a post-procedure VAS of 2. POST OP INSTRUCTIONS The patient was provided a Pain Log to continue to record their response to the target-specific procedure prior to their follow-up visit with the referring physician. Additionally, specific post-injection care instructions and a contact number to our office were provided if concerns arise regarding possible complications associated with the procedure are suspected.
== END 2023-06-22 12:18 | disposition home or self-care (01) ==
PROVIDERS: Family Provider Internal Medicine; PCP Internal Medicine; Referring Provider Physical Medicine & Rehabilitation; Visit Provider Physical Medicine & Rehabilitation
DX: M48.061 Spinal stenosis, lumbar region without neurogenic claudication (principal); M96.1 Postlaminectomy syndrome, not elsewhere classified
CPT/HCPCS: 62323; 99152; J0702; J1100; J2250; J3490

== ENCOUNTER → 2023-08-01 10:38 | Outpatient (CLI) | payer MEDICARE, BC, SELFPAY | PROVIDERS: Family Provider Internal Medicine; PCP Internal Medicine; Visit Provider Physician Assistant | DX: R10.9 Unspecified abdominal pain (principal) | CPT/HCPCS: 87077; 87086; 87186 ==

== ENCOUNTER → 2023-08-28 11:07 | Outpatient (CLI) | payer MEDICARE, BC, SELFPAY ==
[2023-08-28 11:28] LABS: Bilirubin Urine UA NEGATIVE (NEGATIVE); Glucose Urine UA TRACE g/dL (Negative); Ketones Urine UA NEGATIVE (NEGATIVE); Leukocyte Esterase Urine UA 3+ (NEGATIVE); Nitrite Urine UA POSITIVE (Negative); Occult Blood Urine UA 3+ (Negative); Protein Urine UA 2+ (Negative)
[2023-08-28 11:43] LABS: Appearance Urine UA CLOUDY; Color Urine UA ORANGE; RBC Urine 10-30/HPF (0-5/HPF)
[2023-08-28 11:44] LABS: Bacteria Urine Many (>30); Culture Indicated Urine Specimen Cultured; Squamous Epithelial Cell Urine None Seen (0-5/HPF); WBC Urine >100/HPF (0-5/HPF)
== END ==
PROVIDERS: Family Provider Internal Medicine; PCP Internal Medicine; Visit Provider Student in an Organized Health Care Education/Training Program
DX: R30.0 Dysuria (principal)
CPT/HCPCS: 81001; 87077; 87086; 87186

== ENCOUNTER 2023-09-28 08:13 | Outpatient (CLI) | payer MEDICARE, BC, SELFPAY ==
[2023-09-28] VITALS (8 sets, daily range): BP systolic 123–162; BP diastolic 61–78; PULSE 61–68; RESP 12–24; TEMP 36.2; O2SAT 97–100
--- NOTE | 2023-09-28 08:45 | DI.RAD.S_ITS ---
PROCEDURE: PAIN L/S TRANSFORAMINAL INJECT INDICATIONS: SACRAL RADICULOPATHY COMPARISON: None. FINDINGS: Fluoroscopic spot filming was performed to verify placement of spinal needles at the right S1 level(s), as labeled on the films. Appropriate location(s) of the needle tip(s) was confirmed by injection of iodinated contrast. IMPRESSION: Intra procedural examination demonstrating appropriate positions of the needles. Dictated by: Julián Lopes M.D. on 09/28/2023 at 10:55 Approved by: Julián Lopes M.D. on 09/28/2023 at 10:58
[2023-09-28] MEDS: BUPIVACAINE 0.25% (PF) VIAL 2 ML INJ (09:03)
[2023-09-28] MEDS: DEXAMETHASONE 10 MG/ML VIAL INJ (09:03)
[2023-09-28] MEDS: BETAMETHASONE 30 MG/5 ML MDV 6 MG INJ (09:03)
[2023-09-28] MEDS: iopamidoL 15 ML VIAL 3 ML INJ (09:03)
[2023-09-28] MEDS: MIDAZOLAM 2 MG/2 ML VIAL IV (09:04)
--- NOTE | 2023-09-28 09:19 | P.PCN_ITS ---
Date/Time/Diagnoses Date of procedure: 09/28/23 Time of procedure: 09:19 Pre-procedure diagnosis: 1. FORAMINAL STENOSIS WITH LE SYMPTOMS Post-procedure diagnosis: same Procedure Notes Procedure: 1. FLUOROSCOPICALLY GUIDED CONTRAST CONTROLLED TRANSFORAMINAL EPIDURAL STEROID INJECTION - Right S1 Indications: Jen is referred by CELIA Melendez for treatment of Foraminal Stenosis with right LE Symptoms Physician: Sundeep Damico Total Fluoroscopy time (seconds): 24 Total sedation minutes: 20 Complications: none Procedure in detail & Post-procedure care: FINDINGS Foraminal Nerve Root Compression secondary to disc disease and facet hypertrophy DESCRIPTION OF PROCEDURE Following review of allergy and review of potential side effects and complications, including, but not necessarily limited to, infection, allergic reaction, local tissue breakdown, stroke, temporary or permanent nerve injury, paralysis, and possible , the patient indicated that the patient understood and agreed to proceed. An informed consent document was signed by the patient, witnessed by a nurse, and placed in the patient's chart. Additionally, other treatment options including medications, modalities, and physical therapy were reviewed with the patient. After review of previous anaesthesic history and IV conscious sedation the patient was deemed safe to proceed with today?s procedure with IV conscious sedation as ASA class II designation. Safety time-out was performed to confirm patient ID, procedure to be performed and site of procedure. IV sedation was accomplished with a combination of 2mg of Versed was administered by the RN after DO order, titrated to patient comfort during the course of the procedure while the patient remained responsive to all verbal commands. In the prone position following sterile prep and drape of the lumbar region, the right S1 posterior neuroforamen was identified fluoroscopically. The skin was anesthetized via a 25-gauge 1.5-inch needle with 1% lidocaine solution. At this point, a 25-gauge 3.5-inch spinal needle was atraumatically introduced and advanced under fluoroscopic guidance through the posterior right L5/S1 neuroforamen to approximately the anterior aspect of the canal. Depth was confirmed on lateral view. Following negative aspiration, injection of approximately 1.5 cc of Isovue 200 under live fluoroscopy in the AP view confi rmed excellent flow along the nerve root, into the epidural space without vascular or intrathecal uptake observed Radiological data, including multiple fluoroscopic views of the lumbosacral spine, reveal a spinal needle at the right S1 posterior neuroforamen. Subsequent views show flow of contrast material flowing superiorly and inferiorly along the nerve root confirming epidural flow. Subsequently, a test dose of 1.5 cc of 1% lidocaine solution was administered and patient was observed for two minutes for signs or symptoms of complications, including abdominal pain, shortness of breath, bilateral upper or lower extremity weakness, nausea and vomiting, prior to steroid injection. At this point, a total of 2cc or 10mg of dexamethasone and 6mg of betamethasone was injected without incident. The patient was then transferred to the recovery area where they were observed for an appropriate time after the injection. The patient reported a VAS score of 7 prior to the procedure and a post-procedure VAS of 1. POST OP INSTRUCTIONS The patient was provided a Pain Log to continue to record their response to the target-specific procedure prior to follow-up visit with their referring physician. Additionally, specific post-injection care instructions and a contact number to our office were provided if concerns arise regarding possible complications associated with the procedure are suspected.
== END 2023-09-28 09:32 | disposition home or self-care (01) ==
LOC: RAD 08:14
PROVIDERS: Family Provider Internal Medicine; PCP Internal Medicine; Referring Provider Physical Medicine & Rehabilitation; Visit Provider Physical Medicine & Rehabilitation
DX: M48.07 Spinal stenosis, lumbosacral region (principal); M51.17 Intervertebral disc disorders with radiculopathy, lumbosacral region; M47.27 Other spondylosis with radiculopathy, lumbosacral region
CPT/HCPCS: 64483; 99152; J0702; J1100; J2250; J3490

== ENCOUNTER → 2023-12-16 13:11 | Outpatient (CLI) | payer MEDICARE, BC, SELFPAY ==
--- NOTE | 2023-12-16 13:12 | DI.US.S_ITS ---
PROCEDURE: US THYROID INDICATIONS: THYROID NODULE TECHNIQUE: Real-time scanning was performed of the thyroid gland, with image documentation. COMPARISON: None. FINDINGS: Thyroid: Right lobe measures 5.1 x 1.8 x 1.7 cm. Left lobe measures 4.7 x 1.7 x 1.5 cm. Isthmus is 0.3 cm thick. Echotexture is mostly homogeneous except for a 2 macrocalcifications; measuring no more than 3 millimeters in size. These do not appear suspicious and are not amendable for FNA. IMPRESSION: TI-RADS 2 (not suspicious): 2 points. FNA not needed. Dictated by: Lázaro Traylor M.D. on 12/16/2023 at 15:07 Approved by: Lázaro Traylor M.D. on 12/16/2023 at 15:16
== END ==
PROVIDERS: Family Provider Internal Medicine; PCP Internal Medicine; Referring Provider Internal Medicine; Visit Provider Internal Medicine
DX: E04.1 Nontoxic single thyroid nodule (principal)
CPT/HCPCS: 76536

== ENCOUNTER 2023-12-28 12:29 | Outpatient (CLI) | payer MEDICARE, BC, SELFPAY ==
[2023-12-28] VITALS (14 sets, daily range): BP systolic 103–152; BP diastolic 58–71; PULSE 65–80; RESP 12–22; TEMP 37.1; O2SAT 96–100
--- NOTE | 2023-12-28 13:00 | DI.RAD.S_ITS ---
PROCEDURE: PAIN L INTERLAMINAR/CAUDAL INJ INDICATIONS: Para Right L5/S1 TL GREGORY COMPARISON: [facility], , PAIN L INTERLAMINAR/CAUDAL INJ, 06/22/2023, 11:40. FINDINGS: Fluoroscopic spot filming was performed to verify placement of spinal needles at the L5-S1 level(s), as labeled on the films. Appropriate location(s) of the needle tip(s) was confirmed by injection of iodinated contrast. IMPRESSION: Fluoro guidance was provided intraoperatively for right L5-S1 TL GREGORY performed by ordering physician. Dictated by: Clayton Magallon M.D. on 12/28/2023 at 20:18 Approved by: Clayton Magallon M.D. on 12/28/2023 at 20:19
[2023-12-28] MEDS: MIDAZOLAM 2 MG/2 ML VIAL IV (13:15)
[2023-12-28] MEDS: iopamidoL 15 ML VIAL 3 ML INJ (13:24)
[2023-12-28] MEDS: DEXAMETHASONE 10 MG/ML VIAL INJ (13:24)
[2023-12-28] MEDS: BUPIVACAINE 0.25% (PF) VIAL 2 ML INJ (13:24)
[2023-12-28] MEDS: BETAMETHASONE 30 MG/5 ML MDV 6 MG INJ (13:24)
[2023-12-28] MEDS: MIDAZOLAM 2 MG/2 ML VIAL 1 MG IV (13:41)
--- NOTE | 2023-12-28 13:50 | P.PCN_ITS ---
Date/Time/Diagnoses Date of procedure: 12/28/23 Time of procedure: 13:50 Pre-procedure diagnosis: 1. HNP WITH RADICULAR FEATURES, 2. MULTILEVEL CENTRAL STENOSIS, Post-procedure diagnosis: same Procedure Notes Procedure: 1. FLUOROSCOPICALLY GUIDED CONTRAST CONTROLLED INTERLAMINAR EPIDURAL STEROID INJECTION - L5/S1 Indications: Jen is referred by CELIA Beck for treatment of Bilateral Foraminal Stenosis L>R LE symptoms. Physician: Sundeep Damico Total Fluoroscopy time (seconds): 23 Total sedation minutes: 31 Complications: none Procedure in detail & Post-procedure care: FINDINGS Multilevel Central Spinal Stenosis with Nerve Root Compression DESCRIPTION OF PROCEDURE Fluoroscopically guided, contrast-controlled L5/S1 translaminar epidural steroid injection. Following review of allergy and review of potential side effects and complications, including, but not necessarily limited to, infection, allergic reaction, local tissue breakdown, temporary as well as permanent nerve injury, paralysis, stroke and possible , the patient indicated that the patient understood and agreed to proceed. An informed consent document was signed by the patient, witnessed by a nurse, and placed in the patient's chart. Additionally, other treatment options including modalities, medications, and physical therapy were reviewed with the patient. After review of previous anaesthesic history and IV conscious sedation the patient was deemed safe to proceed with today?s procedure with IV conscious sedation as ASA class II designation. Safety time-out was performed to confirm patient ID, procedure to be performed and site of procedure. IV sedation was accomplished with a combination of 3mg of Versed administered by the RN after DO order, titrated to patient comfort during the course of the procedure while the patient remained responsive to all verbal commands. In the prone position, following sterile prep and drape of the lumbar region, the L5/S1 translaminar space was identified fluoroscopically. The skin was anesthetized via a 25-gauge, 1.5-inch needle with 1% lidocaine solution. At this point, a 22-gauge short bevel spinal needle was atraumatically introduced and advanced under fluoroscopic guidance into the region of the L5/S1 translaminar space. Depth was confirmed on lateral view. Radiological data, including multiple fluoroscopic views of the lumbar spine, reveal a spinal needle at the L5/S1 translaminar space. Lateral views then show placement of the needle in the epidural space. Subsequent views show contrast material flowing superiorly and inferiorly in the epidural space. No vascular or intrathecal uptake is observed. At this point, using loss of resistance technique with saline and air, the epidural space was entered. This was confirmed following negative aspiration with injection of approximately 1.5cc of Isovue 200, showing excellent epidural flow without vascular or intrathecal uptake. At this point, 1 cc of 1% lidoc malaika solution combined with 2cc or 10mg of dexamethasone and 6mg of betamethasone was injected without incident. The patent tolerated the procedure without signs of symptoms of complications prior to transfer to the recovery area for further monitoring. The patient was then transferred to the recovery area where they were observed for an appropriate period of time after the injection. The patient reported a VAS score of 8 prior to the procedure and a post-procedure VAS of 2. POST OP INSTRUCTIONS The patient was provided a Pain Log to continue to record their response to the target-specific procedure prior to follow-up visit with their referring physician. Additionally, specific post-injection care instructions and a contact number to our office were provided if concerns arise regarding possible complications associated with the procedure are suspected.
--- NOTE | 2023-12-28 14:25 | PC.NURSE ---
1350 Patient returned post procedure with reports of some weakness to LATOYA, R>L. 1425 Stood with 2 person SBA. Patient able to stand, march in place and take multiple steps. Reports she feels almost normal.
--- NOTE | 2023-12-28 14:55 | PC.NURSE ---
3636 Patient stood with 1 person SBA. Reports feeling at baseline gait. Able to take multiple steps without visible gait instability. Patient has met criteria for discharge.
--- NOTE | 2023-12-29 12:22 | PC.NURSE ---
Post-procedure call: Spoke with patient's (Andrés). Directed to have her call the clinic with any questions or concerns.
== END 2023-12-28 14:50 | disposition home or self-care (01) ==
PROVIDERS: Family Provider Internal Medicine; PCP Internal Medicine; Referring Provider Physical Medicine & Rehabilitation; Visit Provider Physical Medicine & Rehabilitation
DX: M51.17 Intervertebral disc disorders with radiculopathy, lumbosacral region (principal); M48.07 Spinal stenosis, lumbosacral region
CPT/HCPCS: 62323; 99152; 99153; J0702; J1100; J2250; J3490

== ENCOUNTER 2024-03-30 13:35 | Outpatient (CLI) | payer MEDICARE, BC, SELFPAY ==
[2024-03-30] VITALS (8 sets, daily range): BP systolic 122–146; BP diastolic 61–76; PULSE 57–67; RESP 14–19; TEMP 35.9; O2SAT 97–100
--- NOTE | 2024-03-30 14:30 | DI.RAD.S_ITS ---
PROCEDURE: PAIN SI JOINT INJECTION INDICATIONS: Right sacral joint injection COMPARISON: None. FINDINGS: Fluoroscopic spot filming was performed to verify placement of spinal needles at the right sacroiliac level(s), as labeled on the films. Appropriate location(s) of the needle tip(s) was confirmed by injection of iodinated contrast. IMPRESSION: Fluoro guidance was provided intraoperatively for right sacroiliac joint injection performed by ordering physician. Dictated by: Clayton Magallon M.D. on 03/30/2024 at 19:53 Approved by: Clayton Magallon M.D. on 03/30/2024 at 19:53
[2024-03-30] MEDS: MIDAZOLAM 2 MG/2 ML VIAL IV (14:47)
[2024-03-30] MEDS: BUPIVACAINE 0.25% (PF) VIAL 2 ML INJ (14:51)
[2024-03-30] MEDS: iopamidoL 15 ML VIAL 3 ML INJ (14:51)
[2024-03-30] MEDS: BETAMETHASONE 30 MG/5 ML MDV 12 MG INJ (14:51)
--- NOTE | 2024-03-30 15:01 | PM.PROC.IR.1 ---
Date/Time/Diagnoses Date of procedure: 03/30/24 Time of procedure: 15:01 Pre-procedure diagnosis: Sacroiliac joint pain/DJD Post-procedure diagnosis: same Procedure Notes Procedure: Fluoroscopically guided contrast controlled right sacroiliac joint injection Indications: Jen is referred by Dr. Beck for treatment of right sacroiliac joint DJD Physician: Sundeep Damico Total Fluoroscopy time (seconds): 6 Total sedation minutes: 10 Complications: none Procedure in detail & Post-procedure care: DESCRIPTION OF PROCEDURE Fluoroscopically guided, contrast controlled right sacroiliac joint injection Following review of allergies and review of potential side effects and complications, including, but not necessarily limited to, infection, allergic reaction, local tissue breakdown, temporary as well as permanent nerve injury, paralysis, stroke and possible , the patient indicated that they understood and agreed to proceed. An informed consent was signed by the patient, witnessed by a nurse, and placed in the patient's chart. Additionally, other treatment options including modalities, medications, and physical therapy were reviewed with the patient. After review of previous anaesthesic history and IV conscious sedation the patient was deemed safe to proceed with today?s procedure with IV conscious sedation as ASA class II designation. Safety time-out was performed to confirm patient ID, procedure to be performed and site of procedure. IV sedation was accomplished with a combination of 2mg of Versed was administered by the RN after DO order, titrated to patient comfort during the course of the procedure while the patient remained responsive to all verbal commands In the prone position following sterile prep and drape of the pelvic region, the hyper lucency on in the inferior aspect of the sacroiliac joint was identified fluoroscopically the skin was anesthetized be a 25 gauge 1 eventual with approximately 2 cc of 1% lidocaine solution. At this point, a 22 gauge 3 in spinal needle was atraumatically introduced and advanced under fluoroscopic guidance into the inferior aspect of the right sacroiliac joint. Following negative aspiration, approximately 0.3cc of Isovue-300 was injected confirming intra-articular placement without vascular uptake. Radiographic data, including multiple fluoroscopic views of the pelvis, reveals a spinal needle in the sacroiliac joint hyper lucent zone. Subsequent view show flow contrast tear superiorly and inferiorly within the joint capsule without vascular intrathecal uptake. At this point a total of 1cc of 0.5% Marcaine was combined with 1cc of 6 mg of betamethasone was injected without incident. The procedure tolerated the procedure well without signs or symptoms of complications prior to transfer to the recovery area continued monitoring without incident. The patient was then transferred to the recovery area with a bur observed for an appropriate time after the injection. The patient reverted a vas score of 7 prior to the procedure and post-procedure vas of 1. POSTOP INSTRUCTIONS The patient was provided with a pain like to continue to record the patient's response to the target specific procedure prior to the patient's follow-up visit with the referring physician. Additionally, specific post injection care instructions and a contact number to our office were provided if concerns arise regarding the possible complications associated with procedure are suspected.
== END 2024-03-30 15:25 | disposition home or self-care (01) ==
PROVIDERS: Family Provider Internal Medicine; PCP Internal Medicine; Referring Provider Physical Medicine & Rehabilitation; Visit Provider Physical Medicine & Rehabilitation
DX: M53.3 Sacrococcygeal disorders, not elsewhere classified (principal); M46.1 Sacroiliitis, not elsewhere classified
CPT/HCPCS: 27096; 99152; J0702; J2250; J3490

== ENCOUNTER → 2024-05-11 15:21 | Outpatient (CLI) | payer MEDICARE, BC, SELFPAY ==
--- NOTE | 2024-05-11 15:39 | EKG_ITS ---
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
[2024-05-11 17:00] LABS: HEMOLYSIS < 15 (0-50); Potassium 3.6 mmol/L (3.4-5.1)
== END ==
LOC: LAB 15:23
PROVIDERS: Family Provider Internal Medicine; PCP Internal Medicine; Referring Provider Podiatrist; Visit Provider Podiatrist
DX: Z01.818 Encounter for other preprocedural examination (principal)
CPT/HCPCS: 36415; 84132; 93005

== ENCOUNTER → 2024-06-09 16:48 | Outpatient (CLI) | payer MEDICARE, BC, SELFPAY ==
--- NOTE | 2024-06-09 16:49 | DI.MG.S_ITS ---
BILATERAL DIGITAL SCREENING MAMMOGRAM 3D/2D WITH CAD: 06/09/2024 CLINICAL: Routine screening. Comparison is made to exams dated: 06/08/2023 mammogram, 05/15/2022 mammogram, and 05/02/2021 mammogram - [facility]. There are scattered areas of fibroglandular density (category b / 25%-50% glandular tissue). Current study was also evaluated with a Computer Aided Detection (CAD) system. There are benign post operative findings in both breasts. No significant masses, calcifications, or other findings are seen in either breast. There has been no significant interval change. IMPRESSION: BENIGN There is no mammographic evidence of malignancy. A 1 year screening mammogram is recommended. Based on the Tyrer Cuzick model (a risk assessment model) the patient's lifetime risk is 3.9% and her 10 year risk is 2.6%. According to the ACR, ACS, and NCCN guidelines, an annual breast MRI exam along with mammogram is recommended if the patient's lifetime risk is 20% or greater. This exam was interpreted at Station ID: [id number]. NOTE: For mammograms, a report in lay terms will be sent to the patient. Approximately 15% of breast malignancies will not be visualized mammographically. In the management of a palpable breast mass, a negative mammogram must not discourage biopsy of a clinically suspicious lesion. Electronically Signed By: Julien luciano/yuly:06/12/2024 07:40:48 letter sent: Normal Exam ACR BI-RADS Category 2: Benign
== END ==
LOC: MAMMO 16:49
PROVIDERS: Family Provider Internal Medicine; PCP Internal Medicine; Referring Provider Internal Medicine; Visit Provider Internal Medicine
DX: Z12.31 Encounter for screening mammogram for malignant neoplasm of breast (principal)
CPT/HCPCS: 77063; 77067

== ENCOUNTER 2024-07-04 10:46 | Outpatient (CLI) | payer MEDICARE, BC, SELFPAY ==
[2024-07-04] VITALS (10 sets, daily range): BP systolic 122–152; BP diastolic 72–99; PULSE 57–73; RESP 12–20; TEMP 36.3; O2SAT 96–100
--- NOTE | 2024-07-04 11:53 | DI.RAD.S_ITS ---
PROCEDURE: PAIN L INTERLAMINAR/CAUDAL INJ INDICATIONS: Caudal GREGORY COMPARISON: [facility], , PAIN L INTERLAMINAR/CAUDAL INJ, 12/28/2023, 13:23. FINDINGS: Fluoroscopic spot filming was performed to verify placement of spinal needles at the sacral caudal level(s), as labeled on the films. Appropriate location(s) of the needle tip(s) was confirmed by injection of iodinated contrast. IMPRESSION: Imaging guidance provided for caudal sacral steroid injection performed by the referring interventional pain specialist. Dictated by: Rohan Sesay M.D. on 07/04/2024 at 15:58 Approved by: Rohan Sesay M.D. on 07/04/2024 at 15:58
[2024-07-04] MEDS: MIDAZOLAM 2 MG/2 ML VIAL IV (12:04)
[2024-07-04] MEDS: iopamidoL 15 ML VIAL 3 ML INJ (12:05)
[2024-07-04] MEDS: methylPREDNISolone acetate 80 MG/ML VIAL INJ (12:05)
--- NOTE | 2024-07-04 12:23 | PM.PROC.IR.1 ---
Date/Time/Diagnoses Date of procedure: 07/04/24 Time of procedure: 12:23 Pre-procedure diagnosis: 1. MULTILEVEL SPINAL STENOSIS 2. POST FUSION SYNDROME Post-procedure diagnosis: same Procedure Notes Procedure: 1. FLUOROSCOPICALLY GUIDED CONTRAST CONTROLLED CAUDAL EPIDURAL STEROID INJECTION, Indications: Jen is referred by CELIA Beck for treatment of Multilevel Stenosis Physician: Sundeep Damico Total Fluoroscopy time (seconds): 12 Total sedation minutes: 14 Complications: none Procedure in detail & Post-procedure care: FINDINGS Multilevel Stenosis S/p Lami/Fusion Syndrome DESCRIPTION OF PROCEDURE Fluoroscopically guided, contrast controlled caudal epidural steroid injection with Conscious Sedation Following review of allergy and review of potential side effects and complications, including but not necessarily limited to infection, allergic reaction, local tissue breakdown, temporary or permanent nerve injury, stroke, paralysis, and possible , the patient indicated that they understood and agreed to proceed. An informed consent document was signed by the patient, witnessed by a nurse, and placed in the patient's chart. Additionally, other treatment options including medications, modalities, and physical therapy were reviewed with the patient. After review of previous anaesthesic history and IV conscious sedation the patient was deemed safe to proceed with today?s procedure with IV conscious sedation as ASA class II designation. Safety time-out was performed to confirm patient ID, procedure to be performed and site of procedure. IV sedation was accomplished with a combination of 2mg of Versed administered by the RN after DO order, titrated to patient comfort during the course of the procedure while the patient remained responsive to all verbal commands In the prone position, following sterile prep and drape of the lumbar region, the sacral hiatus was identified fluoroscopically. The skin was anesthetized via a 25-gauge, 1.5-inch needle with approximately 2cc of 1% lidocaine solution. At this point, a 25-gauge, 3inch needle was atraumatically introduced and advanced under fluoroscopic guidance to the corresponding sacral hiatus and entering the sacral canal. Following negative aspiration, injection of approximately 0.3cc of Isovue 300 confirmed interarticular placement without vascular uptake. Radiological data, including multiple fluoroscopic views of the lumbosacral spine, reveal a spinal needle in the sacral canal through the sacral hiatus. Subsequent views show flow of contrast material superiorly and inferiorly in the sacral canal without vascular or intrathecal uptake. At this point, a total of 5cc including 2cc or 80mg depo medrol and 3cc of 1% lidocaine solution was injected without complication. The patient tolerated the procedure well without signs or symptoms of complications prior to transfer to the recovery area continued monitoring without incident. The patient was then transferred to the recovery area where they were observed for an appropriate period of time after the injection. The patient reported a VAS score of 10 prior to the procedure and a post-procedure VAS of 2. POST OP INSTRUCTIONS The patient was provided a Pain Log to continue to record their response to the target-specific procedure prior to their follow-up visit with the referring physician. Additionally, specific post-injection care instructions and a contact number to our office were provided if concerns arise regarding possible complications associated with the procedure are suspected.
== END 2024-07-04 12:50 | disposition home or self-care (01) ==
LOC: RAD 10:47
PROVIDERS: Family Provider Internal Medicine; PCP Internal Medicine; Referring Provider Physical Medicine & Rehabilitation; Visit Provider Physical Medicine & Rehabilitation
DX: M48.061 Spinal stenosis, lumbar region without neurogenic claudication (principal); M96.1 Postlaminectomy syndrome, not elsewhere classified; Z98.1 Arthrodesis status
CPT/HCPCS: 62323; 99152; J1010; J2250

== ENCOUNTER → 2024-09-28 12:05 | Outpatient (CLI) | payer MEDICARE, BC, SELFPAY ==
--- NOTE | 2024-09-28 12:09 | DI.MRI.S_ITS ---
PROCEDURE: MR LUMBAR SPINE WO CON INDICATIONS: Right LE pain and weakness s/p scoliosis fusion TECHNIQUE: Noncontrast sagittal T1 spin echo and T2 fast echo, sagittal STIR, and T2 fast spin echo through the lumbar spine. In cases with scoliosis, additional coronal T2 fast spin echo may be performed. COMPARISON: [facility], MR, MR LUMBAR SPINE WO CON, 01/18/2020, 16:02. [facility], CR, XR LUMBAR SPINE MIN 4V, 06/07/2023, 14:26. [facility], MR, L-SPINE WITHOUT CONTRAST, 09/05/2014, 12:14. FINDINGS: Image quality: There is significant, prominent artifact associated with the metallic hardware. Metal suppression algorithm was used, yet there remains significant artifact. Alignment and Curvature: There is significant levoconvex thoracolumbar scoliosis, which is better demonstrated by plain film. Bone Marrow: Marrow is of normal overall signal. No acute vertebral body compression fractures. Spinal Cord: Conus medullaris terminates at the L1 level. Visualized cord demonstrates normal signal and size. Paraspinous Soft Tissues: No paravertebral masses. Secondary to the metallic artifact, evaluation of the neural foramina is highly limited. The AP aspect of the thecal sac is within normal limits throughout the majority of the lumbar spine. IMPRESSION: Nearly nondiagnostic study, secondary to the metallic artifact. There is significant levoconvex lumbar scoliosis within the thoracolumbar spine. Dictated by: Miky Allen M.D. on 09/28/2024 at 15:39 Approved by: Miky Allen M.D. on 09/28/2024 at 16:02
== END ==
PROVIDERS: Family Provider Internal Medicine; PCP Family Medicine; Referring Provider Physical Medicine & Rehabilitation; Visit Provider Physical Medicine & Rehabilitation
DX: M54.16 Radiculopathy, lumbar region (principal); M41.9 Scoliosis, unspecified; Z98.1 Arthrodesis status
CPT/HCPCS: 72148

== ENCOUNTER → 2024-10-10 14:14 | Outpatient (CLI) | payer MEDICARE, BC, SELFPAY ==
--- NOTE | 2024-10-10 14:16 | DI.RAD.S_ITS ---
PROCEDURE: XR DEXA AXIAL SKELETON INDICATIONS: AGE RELATED OSTEOPOROSIS COMPARISON: [facility], , XR DEXA AXIAL SKELETON, 07/01/2022, 15:04. [facility], CR, XR DEXA AXIAL SKELETON, 06/06/2021, 13:04. FINDINGS: Left Femoral Neck: Bone mineral density 0.621 g/cm2, T score -2.1. Left Hip: Bone mineral density 0.735 g/cm2, T score -1.7, decreased by 3.3%. Left Forearm: Bone mineral density 0.463 g/cm2, T score -3.8, no statistically significant change. Fracture Risk Calculation (when applicable): 10-year fracture risk of a major osteoporotic fracture 15 percent and of a hip fracture 3.5 percent. (T score greater or equal to -1.0 to: NORMAL) (T score from -1.1 to -2.4: OSTEOPENIA) (T score less than or equal to -2.5: OSTEOPOROSIS) IMPRESSION: Osteoporosis by WHO classification. Follow-up guidelines as follows: Osteoporosis: Consider a repeat DEXA and Vertebral Fracture Assessment (VFA) exam in 2 years or sooner if medically necessary, to reassess this patient's status. Osteopenia: Consider a repeat DEXA in 2-3 years to reassess this patient's status, or if there is a new clinical indication. Normal: Consider a repeat DEXA in 5 years or sooner, or if there is a new clinical indication. All treatment decisions require clinical judgment and consideration of individual patient factors, including patient preferences, comorbidities, previous drug use, risk factors not captured in the FRAX model (e.g., frailty, falls, vitamin D deficiency, increased bone turnover, interval significant decline in bone density ) and possible under- or over-estimation of fracture risk by FRAX. In addition, the NOF Guide recommends that FDA-approved medical therapies be considered in postmenopausal women and men age >= 50 years with a: * Hip or vertebral (clinical or morphometric) fracture * T-score of <=-2.5 at the spine or hip * Ten-year fracture probability by FRAX of >= 3% for hip fracture or >=20% for major osteoporotic fracture. Dictated by: Julián Lopes M.D. on 10/10/2024 at 16:49 Approved by: Julián Lopes M.D. on 10/10/2024 at 16:50
== END ==
PROVIDERS: Family Provider Internal Medicine; PCP Family Medicine; Referring Provider Family Medicine; Visit Provider Family Medicine
DX: M81.0 Age-related osteoporosis without current pathological fracture (principal)
CPT/HCPCS: 77080

== ENCOUNTER → 2025-02-01 14:56 | Outpatient (CLI) | payer MEDICARE, BC, SELFPAY | PROVIDERS: Family Provider Family Medicine; PCP Family Medicine; Referring Provider Orthopaedic Surgery; Visit Provider Orthopaedic Surgery | DX: M54.16 Radiculopathy, lumbar region (principal); M41.9 Scoliosis, unspecified | CPT/HCPCS: 95886; 95911 ==

== ENCOUNTER 2025-06-15 14:09 | Emergency (ER) | payer MEDICARE, BC, SELFPAY ==
[2025-06-15] VITALS (10 sets, daily range): BP systolic 150–178; BP diastolic 71–87; PULSE 53–80; RESP 16–26; TEMP 37.4; O2SAT 92–98; BMI 20.9
--- NOTE | 2025-06-15 14:26 | DI.RAD.S_ITS ---
PROCEDURE: XR CHEST 1V INDICATIONS: Chest Pain TECHNIQUE: One view of the chest was acquired. COMPARISON: [facility], CHEST 1 VIEW, 08/16/2017, 20:40. [facility], CHEST 1 VIEW, 12/10/2014, 16:23. FINDINGS: Surgical changes and devices: Bilateral Varghese rods, crossing from the upper thoracic spine to overlap with lumbosacral Varghese rods extending below the imaging margin. Moderate convex rightward scoliosis persists and the rods and their attachment devices show no evidence of disruption or loosening.. Lungs and pleura: Lungs are clear. No pleural effusions or pneumothorax. Mediastinum: Mediastinal contours appear normal. Heart size is normal. Bones and chest wall: No suspicious bony lesions. Overlying soft tissues appear unremarkable. IMPRESSION: No acute cardiopulmonary abnormality is seen. Bilateral Varghese rods along the thoracic through the lumbosacral spine, no pneumonia is found. Dictated by: Jaiden Blackmon M.D. on 06/15/2025 at 14:57 Approved by: Jaiden Blackmon M.D. on 06/15/2025 at 14:58
--- NOTE | 2025-06-15 14:26 | EKG_ITS ---
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
[2025-06-15] MEDS: ASPIRIN 81 MG CHEW TAB 324 MG PO (14:29)
[2025-06-15 14:51] LABS: Add Manual Diff / Slide Review NO; Hematocrit 38.4 % (36-46); Hemoglobin 12.9 g/dL (12.0-16.0); Lymphocytes Absolute Auto 600 /uL (1100-4500); Mean Corpuscular HGB Conc 33.5 % (30-36); Mean Corpuscular Hemoglobin 30.3 PG (26-34); Mean Corpuscular Volume 90.4 fL (80-100); Platelet Count 209 X10^3/uL (150-400)
[2025-06-15 14:53] LABS: INR 1.0 (0.9-1.3); Prothrombin Time 11.4 SECONDS (9.4-12.5)
[2025-06-15 14:55] LABS: PTT Partial Thromboplastin Tim 31 SECONDS (25.1-36.5)
[2025-06-15 15:06] LABS: Alanine Aminotransferase 30 IU/L (<35); Albumin 4.4 g/dL (3.5-5.0); Albumin Globulin Ratio 1.8 (1.0-2.8); Alkaline Phosphatase 59 U/L (38-126); Blood Urea Nitrogen 9 mg/dL (7-17); Calcium 9.5 mg/dL (8.4-10.2); Carbon Dioxide 32 mmol/L (22-32); Chloride 93 mmol/L (98-107); Creatine Kinase 172 U/L (30-135); Estimated Glomerular Filt Rate > 60 mL/min (>60); Globulin 2.4 g/dL (1.7-4.1); Glucose 142 mg/dL (70-99); HEMOLYSIS < 15 (0-50); Lipase 1028 U/L (23-300); Magnesium 1.9 mg/dL (1.6-2.3); Potassium 3.8 mmol/L (3.4-5.1); Sodium 130 mmol/L (137-145); Total Protein 6.8 g/dL (6.3-8.2)
[2025-06-15 15:17] LABS: NT-proBNP (BNP-Adult 18+) 91 pg/mL (<125); Troponin I < 0.012 ng/mL (0.01-0.034)
--- NOTE | 2025-06-15 15:23 | ED.CHESTPAIN ---
HPI - Chest Pain General Chief Complaint: Chest Pain Stated Complaint: tightness/pressure in chest for 1 hr Time Seen by Provider: 06/15/25 15:06 Source: patient Mode of arrival: Ambulatory Limitations: no limitations History of Present Illness HPI narrative: 70-year-old woman with a history of chronic low back pain secondary to scoliosis with instrumented fusion of the thoracolumbar spine in 2004. She presents with chest pain that has been ongoing for at least an hour prior to arrival. She describes it as substernal but with palpation it is almost epigastric radiating up into her chest. She does not describe a burning sensation she does not typically have difficulties with reflux. Has not been having nausea or vomiting. No prior history of cardiac disease. No recent fevers, cough, chills. Related Data Home Medications ?Medication ?Instructions ?Recorded ?Confirmed amitriptyline 25 mg tablet 25 mg PO BEDTIME 03/01/20 09/20/24 Held on 06/12/24. Instructions: Home Medication placed on hold at Doctor's office atorvastatin 10 mg tablet 10 mg PO BEDTIME 03/01/20 09/20/24 alendronate 70 mg tablet 70 mg PO QWEEK 06/09/23 09/20/24 hydrochlorothiazide 12.5 mg tablet 12.5 mg PO DAILY 06/09/23 09/20/24 estradiol 0.01% (0.1 mg/gram) 1 appful vaginal DAILY 09/20/23 09/20/24 vaginal cream ibuprofen 200 mg capsule 200 mg PO Q6H PRN 11/18/23 09/20/24 latanoprost 0.005 % eye drops drp EYE-BOTH 03/01/24 09/20/24 Previous Rx's ?Medication ?Instructions ?Recorded gabapentin 600 mg tablet 600 mg PO TID #240 tabs 09/20/24 nortriptyline 25 mg capsule 25 mg PO BEDTIME #60 caps 09/20/24 tramadol 50 mg tablet 50 mg PO BID PRN pain #42 tabs 09/20/24 Allergies Allergy/AdvReac Type Severity Reaction Status Date / Time crab (CRAB) Allergy Mild LIP Verified 06/15/25 14:25 SWELLING MESQUITE Allergy Severe SEVERE Uncoded 06/15/25 14:25 FACIAL SWELLING, HIVES Review of Systems Review of Systems Narrative: Pertinent positive and negative findings as per HPI Patient History Medical History Lumbar radiculopathy Glaucoma, right eye Wrist fracture, left (02/20/20) Scoliosis Osteoporosis GERD (gastroesophageal reflux disease) HTN (hypertension) Atypical chest pain Thoracic back pain Surgical History Hx of sinus surgery Hx of tonsillectomy Hx of arthroscopy of left knee Hx of bilateral oophorectomy History of Marshal fundoplication Hx of eye surgery History of bunionectomy of both great toes Hx of cholecystectomy History of arthroplasty of left knee (08/2015) History of arthroplasty of right knee (03/17/17) Hx of spinal fusion S/P total knee replacement Social History household members: spouse lives independently: Yes Smoking Status: Never smoker alcohol intake: current Smoking Status: Never smoker alcohol intake frequency: a few times a week Exam Initial Vital Signs Initial Vital Signs: Vital Signs Temperature 99.3 F 06/15/25 14:21 Pulse Rate 80 06/15/25 14:21 Respiratory Rate 18 06/15/25 14:21 Blood Pressure 178/80 H 06/15/25 14:21 Pulse Oximetry 98 06/15/25 14:21 Oxygen Delivery Method Room Air 06/15/25 14:21 General: Healthy appearing, in no acute distress. Able to give a complete and coherent history. Well-nourished well-developed HEENT: Moist mucous membranes, normal sclera with reactive pupils, Respiratory: Lungs are clear to auscultation, no wheezing no rales no rhonchi. Full and symmetrical air movement Cardiac: Regular rate and rhythm no murmurs no bruits Abdomen: Soft, no significant epigastric or left upper quadrant tenderness with palpation Skin: Warm and dry, no rashes Neurologic: Grossly neurologically intact with no obvious asymmetries or abnormalities Extremities: No trauma, well perfused Psych: Cooperative, appropriate insight and affect Course Orders Ordered: ED Orders 06/15/25 14:26 XR chest 1V Stat EKG-12 Lead Stat 06/15/25 14:40 Complete Blood Count AUTO DIFF Stat Comprehensive Metabolic Panel Stat Lipase Stat Magnesium Stat NT-proBNP (BNP-Adult 18+) Stat PTT Partial Thromboplastin Johnie Stat Prothrombin Time INR Stat Troponin & CK Cardiac Panel Stat 06/15/25 15:34 CT abdomen pelvis w con Stat 06/15/25 18:12 MRCP [MR abdomen wo/w con] Stat Discontinued Medications Aspirin (Aspirin 81 Mg Chew Tab) 324 mg PO NOW ONE Stop: 06/15/25 14:27 Last Admin: 06/15/25 14:29 Dose: 324 mg Documented By: WILLIAN Vital Signs Vital signs: Vital Signs - 8 hr 06/15/25 14:21 06/15/25 16:52 06/15/25 17:00 Temperature 99.3 F Pulse Rate 80 65 Respiratory Rate 18 20 Blood Pressure 178/80 H 152/76 H Pulse Oximetry 98 96 Oxygen Delivery Method Room Air 06/15/25 17:00 06/15/25 17:30 06/15/25 17:30 Temperature Pulse Rate 53 L 53 L Respiratory Rate 21 16 Blood Pressure 157/77 H Pulse Oximetry 96 97 Oxygen Delivery Method 06/15/25 18:00 06/15/25 18:00 06/15/25 19:04 Temperature Pulse Rate 60 64 Respiratory Rate 19 Blood Pressure 157/71 H Pulse Oximetry 96 92 Oxygen Delivery Method 06/15/25 19:04 Temperature Pulse Rate Respiratory Rate Blood Pressure 164/78 H Pulse Oximetry Oxygen Delivery Method MDM - Chest Pain Lab Data 06/15/25 14:40 06/15/25 14:40 Labs: Lab Results 06/15/25 Range/Units 14:40 WBC 5.5 (4.5-11.0) X10^3/uL RBC 4.25 (4.0-5.2) X10^6/uL Hgb 12.9 (12.0-16.0) g/dL Hct 38.4 (36-46) % MCV 90.4 (80-100) fL MCH 30.3 (26-34) PG MCHC 33.5 (30-36) % RDW 13.6 (11.6-14.8) % Plt Count 209 (150-400) X10^3/uL Neut % (Auto) 74.8 (50-75) % Lymph % (Auto) 11.6 L (25-40) % [place] % (Auto) 9.7 (3-14) % Eos % (Auto) 2.2 (2-4) % Baso % (Auto) 1.7 (0-2) % Neut # (Auto) 4100 (7530-9577) /uL Lymph # (Auto) 600 L (5659-0011) /uL [place] # (Auto) 500 (0-900) /uL Eos # (Auto) 100 (0-450) /uL Baso # (Auto) 100 (0-100) /uL PT 11.4 (9.4-12.5) SECONDS INR 1.0 (0.9-1.3) APTT 31 (25.1-36.5) SECONDS Sodium 130 L (137-145) mmol/L Potassium 3.8 (3.4-5.1) mmol/L Chloride 93 L (98-107) mmol/L Carbon Dioxide 32 (22-32) mmol/L BUN 9 (7-17) mg/dL Creatinine 0.52 (0.52-1.04) mg/dL Estimated GFR > 60 (>60) mL/min BUN/Creatinine Ratio 17.3 (6-22) Glucose 142 H (70-99) mg/dL Calcium 9.5 (8.4-10.2) mg/dL Magnesium 1.9 (1.6-2.3) mg/dL Total Bilirubin 0.4 (0.2-1.3) mg/dL AST 34 (14-36) IU/L ALT 30 (<35) IU/L Alkaline Phosphatase 59 (38-126) U/L Total Creatine Kinase 172 H (30-135) U/L Troponin I < 0.012 (0.01-0.034) ng/mL NT-Pro-B Natriuret Pep 91 (<125) pg/mL Total Protein 6.8 (6.3-8.2) g/dL Albumin 4.4 (3.5-5.0) g/dL Globulin 2.4 (1.7-4.1) g/dL Albumin/Globulin Ratio 1.8 (1.0-2.8) Lipase 1028 H (23-300) U/L Imaging Data CT scan - abdomen/pelvis: Radiologist's Impression: PROCEDURE: CT ABDOMEN PELVIS W CON INDICATIONS: elevated lipase, chest pain TECHNIQUE: After the administration of intravenous contrast, axial sections acquired from the lung bases to the pubic symphysis. Coronal and sagittal reformats were performed. For radiation dose reduction, the following was used: automated exposure control, adjustment of mA and/or kV according to patient size. COMPARISON: None. FINDINGS: Image quality: Diagnostic. Exam is limited due to extensive beam hardening artifacts, motion or other artifacts. Lower Chest: No significant findings. ABDOMEN: Mild intrahepatic biliary ductal dilatation as well as mild dilatation of the pancreatic duct up to 6 mm normally 2 mm or less. Distal common bile duct measures approximately 9 mm within normal limits for post cholecystectomy status however cannot exclude distal common duct, ampullary obstruction, or even pancreatic head lesion or mass given the history, symptoms and constellation of findings. There is mild prominence of the pancreatic head but no discrete mass. Following resolution of acute symptoms MRI pancreas , MRCP or ERCP may be useful for further evaluation. Mild cardiomegaly with four-chamber enlargement. Mild calcifications of the aortic valve coronary arteries and descending aorta. Severe S-shaped scoliosis of the lower thoracic, lumbar spine with extensive postoperative changes, Varghese rods lower thoracic spine to the upper sacrum with associated beam hardening artifacts partially limiting the exam. Moderate amount of stool throughout the colon is noted diffusely and numerous diverticula are present without CT evidence of gross wall thickening to suggest diverticulitis. Mild fluid-filled bowel diffusely throughout the abdomen with some air-fluid levels mid and dilated bowel measuring up to 3 cm most likely ileus/bowel stasis. Partial obstruction not excluded but less likely. No free gas, no loculated fluid collection to suggest abscess. Nonspecific wall thickening of the distal rectum/anus, Xi artifact from partial nondistention or related to proctitis or hemorrhoids, other anal rectal lesion not excluded. Nonspecific wall thickening of the distal esophagus into the stomach, some of which may be artifact from partial nondistention although esophagitis, gastritis or other process could be considered. No significant peripancreatic edema to suggest pancreatitis however correlation with serum lipase and other lab values may be useful. Liver: Liver measures 14.5 cm in CC dimension of the right lobe within normal limits in size and without CT evidence of focal hepatic lesion. Gallbladder: Cholecystectomy Spleen: Size is within normal limits. Adrenal Glands: No adrenal nodules. Kidneys and Ureters: Limited evaluation due to artifacts. No hydronephrosis. No solid mass. No complex renal cystic lesion which requires follow up. Peritoneum: No abnormal intraperitoneal fluid. No free air. Vessels: Aorta and inferior vena cava are normal in size. PELVIS: Pelvic Organs: Calcified leiomyomatous uterus Bladder: Bladder is moderately distended without CT evidence of wall thickening or significant perivesicular edema. IMPRESSION: Limited exam. Suspected ileus/bowel stasis versus partial obstruction. Nonspecific wall thickening distal esophagus into the stomach as discussed above. Intrahepatic and extrahepatic biliary ductal and pancreatic duct dilatation as discussed above. Follow-up is needed. Pattern of constipation. Nonspecific wall thickening distal rectum/anus. Dictated by: Jayesh Saucedo M.D. on 06/15/2025 at 15:58 MDM Narrative Medical decision making narrative: CC: Chest tightness Complicating co-morbidities: Chronic pain, scoliosis with orthopedic rods Data collected from: patient Differential considered: Acute coronary syndrome, gastritis, reflux, pancreatitis, gallbladder disease Exam documented above, pertinent findings include: Exam is unremarkable, no significant reproducible pain Lab Test results independently reviewed as above. Pertinent findings: CBC is unremarkable Chemistries show a sodium of 130. Remainder is unremarkable Lipase is elevated at 1028 Independently reviewed EKG: Sinus rhythm at a rate of 71 no acute ischemic changes Imaging studies independently reviewed: Chest x-ray shows Varghese rods lungs and pleura are felt to be normal CT scan of the abdomen and pelvis discussed nonspecific distal esophageal wall thickening, intrahepatic and extrahepatic biliary ductal and pancreatic ductal dilatation MRCP was limited secondary to motion and Varghese azar hardware however no pancreatic mass nor dramatic intrahepatic extrahepatic biliary dilatation appreciated. Pancreas was felt to be within normal limits Treatments: Chewable aspirin Re-evaluations: Pain has resolved, belly exam is benign Discussion: 70-year-old woman who initially presented with chest pain that I believe was more abdominal pain. Heart score is 3. Lipase was slightly elevated. CT scan initially suggested dilated ducts with concern for abnormality in the head of the pancreas. MRI does not confirm these findings. Patient is not having significant pain along her pancreas. There was no evidence of acute coronary syndrome, pneumonia, gastritis, esophagitis. All findings were reviewed in detail with the patient. At this point as she is pain-free she will be discharged home. We did review in detail all of the imaging studies that were done. Also discussed her slightly elevated lipase level. Recommended that she return if she have further issues or concerns, there was no indication for hospitalization at this Discharge Plan Departure Patient Disposition: Home Clinical Impression: Atypical chest pain, Elevated lipase Instructions: DI for Pancreatitis, DI for Atypical Chest Pain Activity Restrictions/Additional Instructions: Thank you for coming in today Sometimes the best we are able to do in the emergency department is find all of the things that you do not have. You are not having a heart attack, there was no evidence of bleeding, infection, lung infection, pancreatic masses or tumors, liver abnormalities. Your lipase was minimally elevated. This can be an indication that your pancreas is inflamed however CT scan and MRI of the pancreas do not show significant abnormalities At this time, I do not have a full explanation for why you had this chest pain but I do not think that it is life-threatening. I would recommend follow up with your primary care physician. If you find that the pain is returning your you are having worsening symptoms you do need to return to the Prescriptions: No Action atorvastatin 10 mg Tablet 10 mg PO BEDTIME amitriptyline 25 mg Tablet 25 mg PO BEDTIME estradiol 0.01 % (0.1 mg/gram) cream 1 appful vaginal DAILY latanoprost 0.005 % drops EYE-BOTH gabapentin 600 mg tablet 600 mg PO TID Qty: 240 2RF nortriptyline 25 mg capsule 25 mg PO BEDTIME MDD 2 tabs Qty: 60 2RF tramadol 50 mg tablet 50 mg PO BID PRN (Reason: pain) Qty: 42 1RF hydrochlorothiazide 12.5 mg tablet 12.5 mg PO DAILY alendronate 70 mg tablet 70 mg PO QWEEK ibuprofen 200 mg capsule 200 mg PO Q6H PRN Referrals: Sruthi Lubin MD [Primary Care Provider, Family Practice] Stand Alone Forms: Patient Portal/API
--- NOTE | 2025-06-15 15:34 | DI.CT.S_ITS ---
PROCEDURE: CT ABDOMEN PELVIS W CON INDICATIONS: elevated lipase, chest pain TECHNIQUE: After the administration of intravenous contrast, axial sections acquired from the lung bases to the pubic symphysis. Coronal and sagittal reformats were performed. For radiation dose reduction, the following was used: automated exposure control, adjustment of mA and/or kV according to patient size. COMPARISON: None. FINDINGS: Image quality: Diagnostic. Exam is limited due to extensive beam hardening artifacts, motion or other artifacts. Lower Chest: No significant findings. ABDOMEN: Mild intrahepatic biliary ductal dilatation as well as mild dilatation of the pancreatic duct up to 6 mm normally 2 mm or less. Distal common bile duct measures approximately 9 mm within normal limits for post cholecystectomy status however cannot exclude distal common duct, ampullary obstruction, or even pancreatic head lesion or mass given the history, symptoms and constellation of findings. There is mild prominence of the pancreatic head but no discrete mass. Following resolution of acute symptoms MRI pancreas , MRCP or ERCP may be useful for further evaluation. Mild cardiomegaly with four-chamber enlargement. Mild calcifications of the aortic valve coronary arteries and descending aorta. Severe S-shaped scoliosis of the lower thoracic, lumbar spine with extensive postoperative changes, Varghese rods lower thoracic spine to the upper sacrum with associated beam hardening artifacts partially limiting the exam. Moderate amount of stool throughout the colon is noted diffusely and numerous diverticula are present without CT evidence of gross wall thickening to suggest diverticulitis. Mild fluid-filled bowel diffusely throughout the abdomen with some air-fluid levels mid and dilated bowel measuring up to 3 cm most likely ileus/bowel stasis. Partial obstruction not excluded but less likely. No free gas, no loculated fluid collection to suggest abscess. Nonspecific wall thickening of the distal rectum/anus, Xi artifact from partial nondistention or related to proctitis or hemorrhoids, other anal rectal lesion not excluded. Nonspecific wall thickening of the distal esophagus into the stomach, some of which may be artifact from partial nondistention although esophagitis, gastritis or other process could be considered. No significant peripancreatic edema to suggest pancreatitis however correlation with serum lipase and other lab values may be useful. Liver: Liver measures 14.5 cm in CC dimension of the right lobe within normal limits in size and without CT evidence of focal hepatic lesion. Gallbladder: Cholecystectomy Spleen: Size is within normal limits. Adrenal Glands: No adrenal nodules. Kidneys and Ureters: Limited evaluation due to artifacts. No hydronephrosis. No solid mass. No complex renal cystic lesion which requires follow up. Peritoneum: No abnormal intraperitoneal fluid. No free air. Vessels: Aorta and inferior vena cava are normal in size. PELVIS: Pelvic Organs: Calcified leiomyomatous uterus Bladder: Bladder is moderately distended without CT evidence of wall thickening or significant perivesicular edema. IMPRESSION: Limited exam. Suspected ileus/bowel stasis versus partial obstruction. Nonspecific wall thickening distal esophagus into the stomach as discussed above. Intrahepatic and extrahepatic biliary ductal and pancreatic duct dilatation as discussed above. Follow-up is needed. Pattern of constipation. Nonspecific wall thickening distal rectum/anus. Dictated by: Jayesh Saucedo M.D. on 06/15/2025 at 15:58 Approved by: Jayesh Saucedo M.D. on 06/15/2025 at 16:07
--- NOTE | 2025-06-15 18:12 | DI.MRI.S_ITS ---
PROCEDURE: MR ABDOMEN WO/W CON INDICATIONS: Upper abd pain, dilated CBD and pancreatic duct, +lipase TECHNIQUE: Coronal HASTE, axial 2D FLASH in- and [id number]; axial breath-hold T2 FSE. Dynamic axial VIBE during the administration of contrast; post-contrast coronal VIBE or 2D FLASH with fat saturation from the hepatic dome to the iliac crests. Optional diffusion weighted imaging and ADC may be performed. COMPARISON: [facility], CT, CT ABDOMEN PELVIS W CON, 06/15/2025, 15:42. FINDINGS: Image quality: Significant motion and artifact markedly limits evaluation. Lung bases: Unremarkable. Liver: No solid mass. Gallbladder: Removed. Biliary ducts: Mild intra and extrahepatic biliary prominence unchanged. No gross filling defect within the extrahepatic biliary duct. However, significant motion is present. Pancreas: No ductal dilation. Spleen: Size is within normal limits. Adrenal Glands: No adrenal nodules. Kidneys and Ureters: Not well seen secondary to artifact. Stomach and Bowel: Normal colonic caliber, without significant wall thickening. Significant colonic stool. Peritoneum: No abnormal intraperitoneal fluid. No free air. Ventral Wall: No hernia. Abdominal Nodes: No retroperitoneal or mesenteric adenopathy by size criteria. Vessels: Aorta and inferior vena cava are normal in size. Bones: No aggressive osseous abnormality. IMPRESSION: Markedly limited exam secondary to motion and surgical hardware artifact. Mild intra and extrahepatic biliary dilation possibly secondary to post cholecystectomy sequela. No filling defects are identified. Dictated by: Jodie Díaz M.D. on 06/15/2025 at 19:55 Approved by: Jodie Díaz M.D. on 06/15/2025 at 19:58
--- NOTE | 2025-06-15 18:24 | PC.NURSE ---
pt to CT
--- NOTE | 2025-06-15 18:24 | PC.NURSE ---
pt to MRI*
== END 2025-06-15 21:23 | disposition home or self-care (01) ==
PROVIDERS: Emergency Medicine; Emergency Provider Emergency Medicine; Family Provider Family Medicine; PCP Family Medicine
DX: R07.89 Other chest pain (principal); R74.8 Abnormal levels of other serum enzymes
CPT/HCPCS: 36415; 71045; 74177; 74183; 80053; 82550; 83690; 83735; 83880; 84484; 85025; 85610; 85730; 93005; 99284; A9579; Q9967

== ENCOUNTER → 2025-06-20 16:41 | Outpatient (CLI) | payer MEDICARE, BC, SELFPAY ==
--- NOTE | 2025-06-20 16:43 | DI.MG.S_ITS ---
MM screening mammo BI: 06/20/2025. BI-RADS: 1 CLINICAL: 70-year old female for bilateral screening mammogram. Tyrer-Cuzick lifetime risk of 3.4%. No personal or first-degree family history of breast cancer. The patient had prior bilateral breast biopsies. PRIOR EXAMS 06/09/2024, 06/08/2023, 05/15/2022, 05/02/2021, MAMMOGRAPHY TECHNIQUE: 2D and 3D (tomosynthesis) digital mammographic views obtained, with additional images as needed for full coverage. Current study was also evaluated with a Computer Aided Detection (CAD) system. DENSITY B. There are scattered areas of fibroglandular density. MAMMOGRAPHY FINDINGS Bilateral: No suspicious mass, asymmetry, microcalcification, or other abnormality seen. IMPRESSION: * No evidence of malignancy. RECOMMENDATIONS Bilateral * Annual screening mammography. OVERALL ASSESSMENT CATEGORY BI-RADS-1: Negative. The [employer] recommends annual screening mammography beginning at age 40 for women with average risk of breast cancer. ELECTRONICALLY SIGNED: Julien Francois M.D. on 06/21/2025 at 10:20:30 AM PT Interpreting Station ID: [id number]
== END ==
LOC: MAMMO 16:42
PROVIDERS: Family Provider Family Medicine; PCP Family Medicine; Referring Provider Family Medicine; Visit Provider Family Medicine
DX: Z12.31 Encounter for screening mammogram for malignant neoplasm of breast (principal)
CPT/HCPCS: 77063; 77067